=== PATIENT | male | born 1970 | race Caucasian/White ===

== ENCOUNTER 2022-07-13 08:07 | Outpatient (CLI) | payer OTHER, SELFPAY ==
[2022-07-13 10:32] LABS: Albumin* 4.6 g/dL (3.3-5.0); Chloride* 106 mmol/L (96-114)
[2022-07-13 10:33] LABS: Potassium* 4.4 mmol/L (3.6-5.1)
[2022-07-13 10:35] LABS: Alkaline Phosphatase* 96 U/L (40-150); Aspartate Amino Transferase* 28 U/L (12-35); Bilirubin Total* 0.6 mg/dL (0.1-1.5); Blood Urea Nitrogen* 15 mg/dL (7-30); Carbon Dioxide* 27 mmol/L (20-32); Cholesterol* 145 mg/dL (90-199); Creatinine* 0.9 mg/dL (0.5-1.5); Estimated Glomerular Filt Rate 103 ml/min; Glucose* 144 mg/dL (60-115); Total Protein* 7.4 g/dL (6.0-8.3)
[2022-07-13 10:36] LABS: Alanine Aminotransferase* 21 U/L (4-50); Calcium* 9.3 mg/dL (8.4-10.6); HDL Cholesterol* 37 mg/dL (>=40); LDL Cholesterol Calculated 78 mg/dL (<100); Triglycerides* 150 mg/dL (40-149)
[2022-07-13 11:01] LABS: Creatinine Urine 333.5 mg/dL
[2022-07-13 11:04] LABS: PSA Screen* 1.01 ng/mL (0.10-4.00)
[2022-07-13 11:06] LABS: Microalbumin Creatinine Ratio 0 mg/g (0-30); Microalbumin Urine 2 mg/dL
[2022-07-13 11:07] LABS: Sodium* 141 mmol/L (135-149)
== END 2022-07-13 08:08 | disposition home or self-care (01) ==
LOC: NFLDREF 08:07
PROVIDERS: PCP Family Medicine; Visit Provider Family Medicine
DX: E10.9 Type 1 diabetes mellitus without complications (principal); E78.5 Hyperlipidemia, unspecified; I10 Essential (primary) hypertension; Z12.5 Encounter for screening for malignant neoplasm of prostate
CPT/HCPCS: 80053; 80061; 82043; 82570; 84153

== ENCOUNTER 2022-10-12 15:29 | Outpatient (CLI) | payer OTHER, SELFPAY ==
[2022-10-12 17:58] LABS: TSH With Reflex to FT4* < 0.015 uIU/mL (0.270-4.200)
== END 2022-10-12 15:30 | disposition home or self-care (01) ==
LOC: NFLDREF 15:31
PROVIDERS: PCP Family Medicine; Visit Provider Family Medicine
DX: H49.10 Fourth [trochlear] nerve palsy, unspecified eye (principal)
CPT/HCPCS: 83519; 84439; 84443

== ENCOUNTER 2022-10-21 09:57 | Outpatient (CLI) | payer OTHER, SELFPAY ==
--- NOTE | 2022-10-21 10:15 | CRLHL7_ITS ---
For Patients: As a result of the Century Cures Act, medical imaging exams and procedure reports are released immediately into your electronic medical record. You may view this report before your referring provider. If you have questions, please contact your health care provider. Indication: 4TH CRANIAL NERVE PALSY Technique: Noncontrast sagittal T1, axial FLAIR, T2 turbo spine echo, and diffusion weighted images. Supplemental post contrast T1 weighted axial and coronal sequences are provided after administration of 15 mL gadolinium-based IV contrast. Comparison: No prior studies available for comparison at this institution. Findings: The ventricles, sulci and gyri are normal size, shape and contour for age. The midline structures are centrally located with no evidence of shift. There are no suspicious intra or extra-axial fluid collections. No evidence of restricted diffusion to suggest acute ischemia. Incidental 7 mm pineal gland cyst. Few scattered foci of T2/FLAIR signal intensity noted in the supratentorial subcortical white matter. There is enlargement of the right medial rectus muscle belly measuring up to 7 mm with sparing of the tendinous insertions. Enlargement of the right inferior rectus muscle measuring up to 7 mm with sparing of the tendinous insertions. Enlargement of the left superior rectus muscle belly measuring up to 6 mm with sparing of the tendinous insertion. No evidence of intraconal fat inflammation. Expected flow voids in the cavernous carotids and basilar artery. No abnormal contrast enhancement involving the brain parenchyma, meninges, calvarium or skull base. Small incidental retention cysts in the nasopharyngeal mucosa. Impression: 1. Enlargement and fusiform enhancement of the right medial rectus and inferior rectus muscle as well as the left superior rectus muscle with sparing of the tendinous insertions. 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 Correlation with thyroid/TSH hormone levels is recommended. 2. No acute intracranial abnormality. 3. Few punctate scattered foci of T2 prolongation in the supratentorial white matter are nonspecific. Differential considerations include migraine headaches and prior inflammation/demyelination, of doubtful current clinical significance. 4. Incidental 7 mm pineal gland cyst. Dictated by Rosendo Triana MD @ 10/21/2022 2:36:29 PM (Electronically Signed)
== END 2022-10-21 09:58 | disposition home or self-care (01) ==
PROVIDERS: PCP Family Medicine; Visit Provider Family Medicine
DX: H49.10 Fourth [trochlear] nerve palsy, unspecified eye (principal)
CPT/HCPCS: 70553; A9575

== ENCOUNTER 2022-10-25 08:22 | Outpatient (CLI) | payer OTHER, SELFPAY | END 2022-10-25 08:23 | disposition home or self-care (01) | PROVIDERS: PCP Family Medicine; Referring Provider Family Medicine; Visit Provider Family Medicine | DX: E05.90 Thyrotoxicosis, unspecified without thyrotoxic crisis or storm (principal) | CPT/HCPCS: 86376; 86800 ==

== ENCOUNTER 2022-11-08 10:50 | Outpatient (REF) | payer OTHER, SELFPAY ==
[2022-11-11 02:13] LABS: Thyroid Stimulating IgG (TSI) 1.57 IU/L (<=0.54)
== END 2022-11-08 10:51 | disposition home or self-care (01) ==
LOC: LAB 10:50
PROVIDERS: PCP Family Medicine
DX: H49.10 Fourth [trochlear] nerve palsy, unspecified eye (principal); E10.9 Type 1 diabetes mellitus without complications; I10 Essential (primary) hypertension; Z13.29 Encounter for screening for other suspected endocrine disorder; H53.2 Diplopia
CPT/HCPCS: 36415; 84445

== ENCOUNTER 2023-02-16 11:59 | Outpatient (REF) | payer OTHER, SELFPAY ==
[2023-02-16 13:41] LABS: Hemoglobin A1C* 7.06 % (0-5.6)
[2023-02-16 13:49] LABS: Chloride* 104 mmol/L (96-114); Potassium* 4.5 mmol/L (3.6-5.1); Sodium* 138 mmol/L (135-149)
[2023-02-16 13:51] LABS: Creatinine* 0.9 mg/dL (0.5-1.5); Estimated Glomerular Filt Rate 102 ml/min
[2023-02-16 13:52] LABS: Blood Urea Nitrogen* 13 mg/dL (7-30); Calcium* 9.4 mg/dL (8.4-10.6); Carbon Dioxide* 25 mmol/L (20-32); Glucose* 136 mg/dL (60-115)
[2023-02-16 14:37] LABS: Thyroid Stimulating Hormone* < 0.015 uIU/mL (0.270-4.20)
[2023-02-17 16:14] LABS: Free T3 3.9 pg/mL (2.5-4.3)
== END 2023-02-16 12:00 | disposition home or self-care (01) ==
LOC: NPINS 11:59
PROVIDERS: PCP Family Medicine; Visit Provider Internal Medicine Endocrinology, Diabetes & Metabolism
DX: E10.9 Type 1 diabetes mellitus without complications (principal); E05.90 Thyrotoxicosis, unspecified without thyrotoxic crisis or storm
CPT/HCPCS: 80048; 83036; 84439; 84443; 84480; 84481

== ENCOUNTER 2023-04-19 10:42 | Outpatient (REF) | payer OTHER, SELFPAY ==
[2023-04-19 11:11] LABS: Alkaline Phosphatase* 82 U/L (40-150)
[2023-04-19 11:29] LABS: Free T4 Free Thyroxine* 1.01 ng/dL (0.70-1.85)
[2023-04-19 11:43] LABS: Thyroid Stimulating Hormone* 0.744 uIU/mL (0.270-4.20)
[2023-04-20 21:46] LABS: Free T3 3.1 pg/mL (2.5-4.3)
== END 2023-04-19 10:43 | disposition home or self-care (01) ==
LOC: NPINS 10:42
PROVIDERS: PCP Family Medicine; Visit Provider Internal Medicine Endocrinology, Diabetes & Metabolism
DX: E05.90 Thyrotoxicosis, unspecified without thyrotoxic crisis or storm (principal)
CPT/HCPCS: 84075; 84439; 84443; 84481

== ENCOUNTER 2023-07-25 07:35 | Outpatient (CLI) | payer OTHER, SELFPAY | END 2023-07-25 07:36 | disposition home or self-care (01) | LOC: NFLDREF 07-26 10:25 | PROVIDERS: PCP Family Medicine; Referring Provider Family Medicine; Visit Provider Family Medicine | DX: E10.9 Type 1 diabetes mellitus without complications (principal); E78.5 Hyperlipidemia, unspecified; I10 Essential (primary) hypertension; E05.90 Thyrotoxicosis, unspecified without thyrotoxic crisis or storm; E07.9 Disorder of thyroid, unspecified | CPT/HCPCS: 80053; 80061; 82043; 82570 ==

== ENCOUNTER 2023-07-25 10:44 | Outpatient (REF) | payer OTHER, SELFPAY ==
[2023-07-25 11:15] LABS: Alkaline Phosphatase* 63 U/L (40-150)
[2023-07-25 11:33] LABS: Free T4 Free Thyroxine* 1.18 ng/dL (0.70-1.85)
[2023-07-26 22:11] LABS: Free T3 3.2 pg/mL (2.5-4.3)
== END 2023-07-25 10:45 | disposition home or self-care (01) ==
LOC: NPINS 10:44
PROVIDERS: PCP Family Medicine; Visit Provider Internal Medicine Endocrinology, Diabetes & Metabolism
DX: E05.90 Thyrotoxicosis, unspecified without thyrotoxic crisis or storm (principal)
CPT/HCPCS: 84075; 84439; 84443; 84481

== ENCOUNTER 2023-10-03 08:58 | Outpatient (REF) | payer OTHER, SELFPAY ==
--- OUTSIDE RECORDS SUMMARY | 2023-10-03 09:03 | XMS_ITS | Encounter Summary ---
Author Name Unknown Organization [place] Address Count includes the [facility] [place] [address] Care Team Providers Care Quality Assurance Representative Name Role Phone Unavailable Primary Care Provider Unavailabl e Encounter Details Date Type Department Care Team (Latest Contact Info) Description 11/02/2022 Travel Social History Tobacco Use Types Packs/Day Years Used Date Smoking Tobacco: Never Assessed Sex and Gender Information Value Date Recorded Sex Assigned at Not on file Gender Identity Not on file Sexual Orientation Not on file COVID-19 Exposure Response Date Recorded In the last 10 days, have yo u been in contact with someone who was confirmed or suspected to have Coronavirus/COVID-19? No / Unsure 11/02/2022 7:43 PM CDT documented as of this encounter Plan of Treatment Upcoming Encounters Date Type Department Care Team (Late st Contact Info) Description 01/02/2024 2:00 PM CDT Office Visit [facility] [address] [phone] [place] MD [address] [place] [address] documented as of this encounter Visit Diagnoses Not on filedocumented in this encounter
--- OUTSIDE RECORDS SUMMARY | 2023-10-03 09:03 | XMS_ITS | Referral Summary ---
Author Name Unknown Organization [place] Address [facility] [place] [address] Care Team Providers Care Automotive Service Management Teacher Name Role Phone [place] MD Unavailable [phone] Encounters Date Type Department Care Team Description 07/04/2023 Travel 07/04/2023 2:00 PM WARE CLEANER Office Visit [facility] [address] [phone] [place] MD Diplopia (Primary Dx); Thyroid eye disease; Esotropia, right eye; Hypotropia of right eye from Last 3 Months Allergies No known active allergies Medications Medication Sig Dispensed Refills Start Date End Date Status atorvastatin (LIPITOR) 20 MG tablet 20 MG ORALLY EVERY DAY AT BEDTIME 0 08/02/2022 Active lisinopril (ZESTRIL) 20 MG tablet 20 MG ORALLY EVERY DAY 0 08/02/2022 Ac tive HUMALOG KWIKPEN 100 UNIT/ML soln INJECT 8-25 UNITS SUBCUTANEOUSLY 3 TIMES PER DAY WITH MEALS. 0 07/23/2022 Active LEVEMIR FLEXTOUCH 100 UNIT/ML pen 60 UNIT (0.6 ML) SUBCUTANEOUSLY EVERY DAY AT BEDTIME 0 2022 Active aspirin (ASA) 81 MG chewable tablet 0 Active Multiple Vitamin (MULTIVITAMIN PO) daily 0 Active Alvord-3 Fatty Acids (FISH OIL PO) Take by mouth daily 0 Activ e Social History Tobacco Use Types Packs/Day Years Used Date Smoking Tobacco: Former Cigarettes Q uit: 08/15/1994 Smokeless Tobacco: Never Tobacco Cessation:Counseling Given: Not Answered PHQ-2 Answer Date Recorded PHQ-2 Score 0 03/14/2023 Adolescent Education Answer Date Record ed Getting School Help Needed Not on file 05/30 Sex and Gender Information Value Date Recorded Sex Assigned at Not on file Gender Identity Not on file Sexual Orientation Not on file Plan of Treatment Upcoming Encounters Date Type Department Care Team (Late st Contact Info) Description 01/02/2024 2:00 PM CDT Office Visit [facility] [address] [facility] [address] [place] [phone] [place] MD [address] [place] [address] Procedures Procedure Name Priority Date/Time Associated Diagnosis Comments [place] JACKELYNSJEROME PRISM PRESS-ON LENS Routine 07/04/2023 2:51 PM WARE CLEANER Diplopia Thyroid eye disease Esotropia, right eye Hypotropia of right eye SENSORIMOTOR Routine 07/04/2023 2:51 PM WARE CLEANER Esotropia, right eye Hypotropia of right eye from Last 3 Months Results * Sensorimotor (07/04/2023 2:51 PM WARE CLEANER) Narrative [place] MD - 07/04/2023 2:51 PM WARE CLEANER Performed by: SEAMUS Berry Patient cooperation: Reliable . Reliability of the test: Good . Test Findings: Strabismus . Interpretation: Esotropia, Hypertropia, Thyroid eye disease . Plan: Will monitor and consider eye muscle surgery . Interval: Same . [place] MD OPHTHALMOLOGY from Last 3 Months Care Teams Automotive Service Management Teacher Relationship Specialty Start Date End Date [place] MD [address] [place] [address] Assigned Surgical Provider 03/19/23
--- OUTSIDE RECORDS SUMMARY | 2023-10-03 09:03 | XMS_ITS | Encounter Summary ---
Author Name Unknown Organization [place] Address [address] [place] [address] Care Team Providers Care Asphalt Roller Person Name Role Phone [place] MD Unavailable [phone] Encounter Details Date Type Department Care Team (Latest Contact Info) Description 07/04/2023 Travel Social History Tobacco Use Types Packs/Day Years Used Date Smoking Tobacco: Former Cigarettes Q uit: 08/15/1994 Smokeless Tobacco: Never PHQ-2 Answer Date Recorded PHQ-2 Score 0 03/14/2023 Adolescent Education Answer Date Record ed Getting School Help Needed Not on file 05/30 Sex and Gender Information Value Date Recorded Sex Assigned at Not on file Gender Identity Not on file Sexual Orientation Not on file documented as of this encounter Plan of Treatment Upcoming Encounters Date Type Department Care Team (Late st Contact Info) Description 01/02/2024 2:00 PM CDT Office Visit [facility] [address] [phone] [place] MD [address] [place], [place] [phone] documented as of this encounter Visit Diagnoses Not on filedocumented in this encounter Care Teams Asphalt Roller Person Relationship Specialty Start Date End Date [place] Singh MD [address] [place] [phone] Assigned Surgical Provider 03/19/23 documented as of this encounter
--- OUTSIDE RECORDS SUMMARY | 2023-10-03 09:03 | XMS_ITS | Clinical Summary ---
Author Name Unknown Organization [place] Address [address] [place] [address]. [place] [address] Care Team Providers Care Heel Room Supervisor Name Role Phone [place] MD Unavailable [phone] Allergies No known active allergies Medications Medication [...] Multiple Vitamin (MULTIVITAMIN PO) daily 0 Active Hyampom-3 Fatty Acids (FISH OIL PO) Take by mouth daily 0 Activ e Encounters Date Type Department Care Team Description 07/04/2023 2:00 PM AUDIT SENIOR ASSOCIATE Office Visit [facility] [address] [phone] [place] MD Diplopia (Primary Dx); Thyroid eye disease; Esotropia, right eye; Hypotropia of right eye 07/04/2023 Travel from Last 3 Months Family History Medical History Relation Comments Diabetes Maternal Grandmother Glaucoma Maternal Grandmother Macular Degeneration No family hx of Relation Status Comments Maternal Grandmother Social History Tobacco Use Types Packs/Day Years [...] Description 01/02/2024 2:00 PM CDT Office Visit [facility] [address] [facility] [address] [place] [address] [place] MD [address] [place] [address] Health Maintenance Due Date Last Done Comments ADVANCE CARE PLANNING 1969 ANNUAL REVIEW OF HM ORDERS 1969 CT COLONOGRAPHY 1969 FIT 1969 FLEX SIG 1969 GLUCOSE 1969 HEPATITIS B IMMUNIZATION (1 of 3 - 3-dose series) 1969 LIPID 1969 YEARLY PREVENTIVE VISIT 1969 sDNA (Cologuard) 1969 COLONOSCOPY 1979 COLORECTAL CANCER SCREENING 1979 HIV SCREENING 1984 HEPATITIS C SCREENING 1987 COVID-19 Vaccine ( season) 2023 06/11/2021, 11/22/2020, 11/01/2020 INFLUENZA VACCINE (#1) 2023 2, 07/19/2022, 06/11/2021, Additional history exists PHQ-2 (once per calendar year) 2023 03/14/2023, 11/07/2022 DTAP/TDAP/TD IMMUNIZATION (3 - Td or Tdap) 06/05/2030 06/05/2020, 03/09/2011, 09/21/2002 Pneumococcal Vaccine: Pediatrics (0 to 5 Years) and At-Risk Patients (6 to 64 Years) Aged Out 04/02/2015 No longer eligible based on patient's age to complete this topic ZOSTER IMMUNIZATION Completed 11/08/2022, 2 HPV IMMUNIZATION Aged Out No longer e ligible based on patient's age to complete this topic IPV IMMUNIZATION Aged Out No longer e ligible based on patient's age to complete this topic MENINGITIS IMMUNIZATION Aged Out No l onger eligible based on patient's age to complete this topic RSV MONOCLONAL ANTIBODY Aged Out No l onger eligible based on patient's age to complete this topic Procedures Procedure Name Priority Date/Time Associated Diagnosis Comments [place] JACKELYNDaquanJEROME PRISM PRESS-ON LENS Routine 07/04/2023 2:51 PM AUDIT SENIOR ASSOCIATE Diplopia Thyroid eye disease Esotropia, right eye Hypotropia of right eye SENSORIMOTOR Routine 07/04/2023 2:51 PM AUDIT SENIOR ASSOCIATE Esotropia, right eye Hypotropia of right eye from Last 3 Months Results * Sensorimotor (07/04/2023 2:51 PM AUDIT SENIOR ASSOCIATE) Narrative [place] MD - 07/04/2023 2:51 PM AUDIT SENIOR ASSOCIATE Performed by: SEAMUS Berry Patient cooperation: Reliable . Reliability of the test: Good . Test Findings: Strabismus . Interpretation: Esotropia, Hypertropia, Thyroid eye disease . Plan: Will monitor and consider eye muscle surgery . Interval: Same . [place] MD OPHTHALMOLOGY from Last 3 Months Care Teams Heel Room Supervisor Relationship Specialty Start Date End Date [place] MD [address] [place] [address] Assigned Surgical Provider 03/19/23
--- OUTSIDE RECORDS SUMMARY | 2023-10-03 09:03 | XMS_ITS | Encounter Summary ---
Author Name Unknown Organization [place] Address [address] [place] [address]. [place] [address] Care Team Providers Care Wrapper Opener Name Role Phone Unavailable Primary Care Provider Unavailabl e Reason for Referral * Consultation (Routine) - Pending Review Specialty Diagnoses / Procedures Referred By Inder babb Referred To Contact Ophthalmology Diagnoses Thyrotoxicosis, unspecified without thyrotoxic crisis or storm Rafa Hatfield OD [facility] [address] [place] [id number] Referral ID Status Reason Start Date Expiration Date V isits Requested Visits Authorized [id number] Pending Review 10/28/2022 10/28/2023 1 1 Question Answer Referral Type: Optometry/Ophthalmology Reason for Referral: Other My Clinical Question Is: [facility] Scheduling Instructions: Isi Fernandez will call you to coordinate your care as prescribed by your provider. If you don't hear from a industrial sales representative within 2 business days, please call . Additional Information: recently diagnosed with Grave's disease Comments Referred by Rafa Hatfield right eye @ [facility] [phone] Please be aware that coverage of these services is subject to the terms and limitations of your health insurance plan. Call member services at your health plan with any benefit or coverage questions. Isi [facility] will call you to coordinate your care as prescribed by your provider. If you don't hear from a industrial sales representative within 2 business days, please call . Encounter Details Date Type Department Care Team (Late st Contact Info) Description 10/28/2022 Transcribe Orders GENERIC EXTERNAL DATA DEPARTMENT Provider, Generic External Data Thyrotoxicosis, unspecified without thyrotoxic crisis or storm (Primary Dx) Social History Tobacco Use Types Packs/Day Years Used Date Smoking Tobacco: Never Assessed Sex and Gender Information Value Date Recorded Sex Assigned at Not on file Gender Identity Not on file Sexual Orientation Not on file documented as of this encounter Plan of Treatment Upcoming Encounters Date Type Department Care Team ([facility] Contact Info) Description 01/02/2024 2:00 PM CDT Office Visit [facility] [address] [phone] [place] MD [address] [place] [phone] Scheduled Referrals Name Type Priority Associated Diagnoses Orde r Schedule Adult Eye Auction Clerk Referral Referral Routine Thyrotoxicosis, unspecified without thyrotoxic crisis or storm Expected: 10/28/2022 (Approximate), Expires: 10/29/2023 documented as of this encounter Visit Diagnoses Diagnosis Thyrotoxicosis, unspecified without thyrotoxic crisis or storm- Primary documented in this encounter
--- OUTSIDE RECORDS SUMMARY | 2023-10-03 09:03 | XMS_ITS | Encounter Summary ---
Author Name Unknown Organization [place] Address [address] [place] [address]. [place] [address] Care Team Providers Care Sales Officer Name Role Phone System, Provider Not In Primary Care Provider Un available [place] MD Unavailable [phone] Reason for Visit * Reason Onset Date Comments Referral 10/29/2022 Dx-Thyrotoxicosi s, unspecified without thyrotoxic crisis or storm [E05.90] Encounter Details Date Type Department Care Team ([facility] st Contact Info) Description 10/29/2022 [facility] [address] [facility] [address] [place] [phone] None Referral (Dx-Thyrotoxicosis, unspecified without thyrotoxic crisis or storm [E05.90]) Social History Tobacco Use Types Packs/Day Years Used Date Smoking Tobacco: Never Assessed Sex and Gender Information Value Date Recorded Sex Assigned at Not on file Gender Identity Not on file Sexual Orientation Not on file documented as of this encounter Miscellaneous Notes * Telephone Encounter - Silvino [place] - 11/01/2022 7:52 AM CDT Sent new patient packet..silvino * Telephone Encounter - Carisa [place] - 10/29/2022 11:01 AM CDT [facility] Call Center Phone Message May a detailed message be left on voicemail: yes Reason for Call: Appointment Intake Referring Provider Name: Miliner, Rafa C, OD in GENERIC EXTERNAL DATA DEPARTMENT Diagnosis and/or Symptoms: Thyrotoxicosis, unspecified without thyrotoxic crisis or storm [E05.90] Referral says to schedule in [facility] and Patient said needs to be seen earlier than 03/14 also said has double Vision and 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, Please call patient to discuss being seen earlier with his current symptoms, not able to work Thank you, Action Taken: Message routed to: [facility]): eye Travel Screening: Not Applicable documented in this encounter Plan of Treatment Upcoming Encounters Date Type Department Care Team (Late st Contact Info) Description 01/02/2024 2:00 PM CDT Office Visit [facility] [address] [phone] [place] MD [address] [place] [address] documented as of this encounter Visit Diagnoses Not on filedocumented in this encounter Care Teams Sales Officer Relationship Specialty Start Date End Date System, Provider Not In PCP - General Clinic 10/29/22 10/29/22 [place] Singh MD [address] [place] [address] Assigned Surgical Provider 03/19/23 documented as of this encounter
--- OUTSIDE RECORDS SUMMARY | 2023-10-03 09:03 | XMS_ITS | Encounter Summary ---
Author Name Unknown Organization [place] Address [address] [place] [address] Care Team Providers Care Enterprise Security Architect Name Role Phone [place] MD Unavailable [phone] Encounter Details Date Type Department Care Team (Latest Contact Info) Description 06/27/2023 Travel Social History Tobacco Use Types Packs/Day [...] Description 01/02/2024 2:00 PM CDT Office Visit [facility] [address] [phone] [place] MD [address] [place], [place] [phone] documented as of this encounter Visit Diagnoses Not on filedocumented in this encounter Care Teams Enterprise Security Architect Relationship Specialty Start Date End Date [place] Singh MD [address] [place] [phone] Assigned Surgical Provider 03/19/23 documented as of this encounter
--- OUTSIDE RECORDS SUMMARY | 2023-10-03 09:03 | XMS_ITS | Encounter Summary ---
Author Name Unknown Organization [place] Address [address] [facility] [place] [address] Care Team Providers Care Pin Sticker Name Role Phone Raymond Singh MD Unavailable [phone] Reason for Visit * Reason Comments Thyroid Disease Has fresnel prisms t hat resolves the diplopia in primary position.No pain, but the right eye feels discomfort Encounter Details Date Type Department Care Team (Late st Contact Info) Description 07/04/2023 2:00 PM MAIL MANAGER Office Visit [facility] [address] [phone] Raymond Singh MD [address] [place], [place] [id number] Diplopia (Primary Dx); Thyroid eye disease; Esotropia, right eye; Hypotropia of right eye Social History Tobacco Use Types Packs/Day Years [...] on file documented as of this encounter Progress Notes * Raymond Singh MD - 07/04/2023 2:00 PM CST Images from the original note were not included. THYROID EYE DISEASE CLINIC - VISIT NOTE Referring physician: Dr. Jorge Ramey HPI: After the last visit, the patient notes that his binocular diplopia improved substantially with Fresnel prism correction. He states that he has intermittent epiphora right eye, improved with hot water soaks in the shower. He denies visual acuity changes or eye pain at rest or with movement. He is not currently using AT. HPI: He was diagnosed with Graves Disease in November 2022. He has had bilateral eye redness and watering for the past year. They started bulging in the spring. Double vision started Fall 2021. The double vision is binocular and vertical with an oblique component. It has been the same for about 10 months and not changing. He had an MRI in October 2022 which is when he was diagnosed with Grave's Disease. He initially had palpitations and some shakiness but it has improved with the medication. He has bilateral eye irritation and redness for which he is using artificial tears. He started Methazolamide in and the dose was recently increased. Follows with Radha Sutherland at [facility]. Thyroid history: Diagnosed when? Diagnosed with graves disease 10/2022 [place]: no Thyroidectomy: no Methazolamide 5 mg daily and 10 mg on Mondays and Selenium TSI Elevated to 1.57 [<0.54] on 02/17/23 [facility] ONLY MRI Brain [facility] 10/21/22: Eye symptoms (since when): since 02/2023 Proptosis (better/worse/same since last visit): better Diplopia(better/worse/same since last visit): same, constant (improved with Fresnel) Eyelid retraction(better/worse/same since last visit): better Tearing(better/worse/same since last visit): same, constant Redness (better/worse/same since last visit): better Pain (better/worse/same since last visit): better Pain to move the eyes (better/worse/same since last visit): same, intermittent Blurred vision: better, only with epiphora Ocular history: Orbital decompression: none Strabismus surgery: none Eyelid surgery: none Medical history: Type 1 Diabetes - last A1c 7.6 a few weeks ago Patient has a current medication list which includes the following prescription(s): aspirin, atorvastatin, humalog kwikpen, levemir flextouch, lisinopril, multiple vitamin, and omega-3 fatty acids. Patient reports that he quit smoking about 28 years ago. His smoking use included cigarettes. He has never used smokeless tobacco. Smoked for about 8 years in teens/early 20's Exam: Licha: / Better/worse same: same Strabismus (better/worse/same): Right ET and right hypo - measuring slightly worse in all gazes today but continues to fuse with current fresnel Eyelid retraction (better/worse/same): bilateral upper lid retraction BUCK Score: 1. Spontaneous orbital pain. 0 2. Gaze evoked orbital pain. 1 3. Eyelid swelling due to active thyroid eye disease 1 4. Eyelid erythema. 1 5. Conjunctival redness due to active thyroid eye disease . 1 6. Chemosis. 1 7. Inflammation of caruncle OR plica. 0 Patients assessed after follow-up can be scored out of 10 by including items 8-10. 8. Increase of > 2mm in proptosis. 0 9. Decrease in uniocular excursion in any direction of > 8??. 0 10. Decrease of acuity equivalent to 1 Snellen line. 0 BUCK SCORE = 5/10 Galindo Diplopia Score = 3 0 = no diplopia 1 = intermittent (when tired, upon waking, end of day etc) 2 = inconstant (extreme gazes) 3 = constant Lon Garcia is a 52 year old male with the following diagnoses: 1. Diplopia 2. Thyroid eye disease 3. Esotropia, right eye 4. Hypotropia of right eye Diagnosed with Grave's Disease in November 2022. Onset of eye symptoms including bulging and double vision several months before diagnosis. TSI elevated to 1.57 on 02/17/23. Has right esotropia and hypotropia. Fresnel prisms fit on glasses last visit, which largely resolved the diplopia. This patient has moderate to severe active thyroid eye disease. Subjectively improved since last visit. BUCK score improved to 5/10 (from 01/19). Sensorimotor exam with RET and R Hypo measuring slightly worse than prior but doing well in currentprism correction. Eyelid retraction improved. Ocular surface inflammation largely stable. Former smoker (quit 30 years ago). On methimazole managed by oil and gas superintendent. Discussed options fortreatment of active IMANI including IV corticosteroids vs Tepezza vs orbital radiation vs monitoring at last visit; Tepezza was deferred given history of diabetes and risk of hearing loss. Discussed strabismus surgery is not recommended during active phase but can be considered one his thyroid eye disease is chronic/inactive. Continue current fresnel prism correction Start artificial tears QID Consider AT nacho Start WC PRN if warm soaks are helpful Follow up in 4-6 months. Attending Physician Attestation: Complete documentation of historical and exam elements from today's encounter can be found in the full encounter summary report (not reduplicated in this progress note). I personally obtained the chief complaint(s) and history of present illness. I confirmed and edited as necessary the review of systems, past medical/surgical history, family history, social history, and examination findings as documented by others; and I examined the patient myself. I personallyreviewed the relevant tests, images, and reports as documented above. I formulated and edited as necessary the assessment and plan and discussed the findings and management plan with the patient and f leviy. I personally reviewed the ophthalmic test(s) associated with this encounter, agree with the interpretation(s) as documented by the resident/fellow, and have edited the corresponding report(s) as necessary. - Raymond Franco MD Oculoplastic Surgery Fellow, [facility] Pre-charting: Lennie Russell MD Fellow, Neuro-ophthalmology MANAGER documented in this encounter Nursing Notes * Jigna Lord CO - 07/04/2023 2:00 PM CST Chief Complaint(s) and History of Present Illness(es) Thyroid Disease Laterality: both eyes Course: stable Associated symptoms: double vision, redness and tearing. Negative for eye pain Comments: Has fresnel prisms that resolves the diplopia in primary position. No pain, but the right eye feels discomfort MANAGER documented in this encounter Plan of Treatment Upcoming Encounters Date Type Department Care Team (Late st Contact Info) Description 01/02/2024 2:00 PM CDT Office Visit [facility] [address] [facility] [address] [place] [phone] Raymond Singh MD [address] [place] [phone] documented as of this encounter Procedures Procedure Name Priority Date/Time Associated Diagnosis Comments CO FRESNELL PRISM PRESS-ON LENS Routine 07/04/2023 2:51 PM MAIL MANAGER Diplopia Thyroid eye disease Esotropia, right eye Hypotropia of right eye SENSORIMOTOR Routine 07/04/2023 2:51 PM MAIL MANAGER Esotropia, right eye Hypotropia of right eye documented in this encounter Results * Sensorimotor (07/04/2023 2:51 PM MAIL MANAGER) Narrative Raymond Singh MD - 07/04/2023 2:51 PM MAIL MANAGER Performed by: SEAMUS Berry Patient cooperation: Reliable . Reliability of the test: Good . Test Findings: Strabismus . Interpretation: Esotropia, Hypertropia, Thyroid eye disease . Plan: Will monitor and consider eye muscle surgery . Interval: Same . 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
--- OUTSIDE RECORDS SUMMARY | 2023-10-03 09:03 | XMS_ITS | Encounter Summary ---
Author Name Unknown Organization [place] Address [address] [place] [address] Care Team Providers Care Family Law Specialist Name Role Phone Unavailable Primary Care Provider Unavailabl e Reason for Visit * Reason Comments Thyroid Disease RE feels pressureNee ds to turn head to the right to see singleTaking selenium and methimazole.No smokingTaking Encounter Details Date Type Department Care Team (Late st Contact Info) Description 03/14/2023 1:00 PM CDT Office Visit [facility] [address] [phone] Raymond Singh MD [address] [place] [phone] Thyroid eye disease (Primary Dx); Diplopia; Esotropia, right eye; Hypotropia of right eye Social History Tobacco Use Types Packs/Day Years Used Date Smoking Tobacco: Former Cigarettes Q uit: 08/15/1994 Smokeless Tobacco: Never PHQ-2 Answer Date Recorded PHQ-2 Score 0 03/14/2023 Sex and Gender Information Value Date Recorded Sex Assigned at Not on file Gender Identity Not on file Sexual Orientation Not on file COVID-19 Exposure Response Date Recorded In the last 10 days, have yo u been in contact with someone who was confirmed or suspected to have Coronavirus/COVID-19? No / Unsure 03/14/2023 12:02 PM CDT documented as of this encounter Progress Notes * Raymond Singh MD - 03/14/2023 1:00 PM CDT Images from the original note were not included. THYROID EYE DISEASE CLINIC - NEW VISIT NOTE Referring physician: Dr. Patel HPI: He was diagnosed with Graves Disease [...] with Radha Sutherland at [facility]. Thyroid history: Diagnosed when? Diagnosed with graves disease 10/2022 [place]: no Thyroidectomy: no Methazolamide 5 mg daily and 10 mg on Mondays and (recently increased) Selenium TSI Elevated to 1.57 [<0.54] on 02/17/23 [facility] ONLY MRI Brain [facility] 10/21/22: Eye symptoms (since when): initial Proptosis (better/worse/same since last visit): yes Diplopia(better/worse/same since last visit): yes, constant Eyelid retraction(better/worse/same since last visit): yes, bilateral Tearing(better/worse/same since last visit): yes, constant Redness (better/worse/same since last visit): yes Pain (better/worse/same since last visit): yes, occasionally Pain to move the eyes (better/worse/same since last visit): yes Blurred vision: yes, sometimes left>right Ocular history: Orbital decompression: none Strabismus surgery: [...] 8 years in teens/early 20's Exam: Licha: base 105 Better/worse same: initial Strabismus (better/worse/same): Right ET and right hypo - initial Eyelid retraction (better/worse/same): bilateral upper lid retraction BUCK Score: 1. Spontaneous orbital pain. 1 2. Gaze evoked orbital pain. 1 3. Eyelid swelling due to active thyroid eye disease 1 4. Eyelid erythema. 1 5. Conjunctival redness due to active thyroid eye disease . 1 6. Chemosis. 1 7. Inflammation of caruncle OR plica. 0 Patients assessed after follow-up can be scored out of 10 by including items 8-10. 8. Increase of > 2mm in proptosis. N/A 9. Decrease in uniocular excursion in any direction of > 8??. N/A 10. Decrease of acuity equivalent to 1 Snellen line. N/A BUCK SCORE = 6/7 Galindo Diplopia Score = 3 0 = no diplopia 1 = intermittent (when tired, upon waking, end of day etc) 2 = inconstant (extreme gazes) 3 = constant Lon Garcia is a 52 year old male with the following diagnoses: 1. Thyroid eye disease 2. Diplopia 3. Esotropia, right eye 4. Hypotropia of right eye Diagnosed with Grave's Disease in November 2022. Onset of eye symptoms including bulging and double vision several months before diagnosis. Has right esotropia and hypotropia. Fresnel prisms fit on glasses today. BUCK score 6/7. TSI elevated to 1.57 on 02/17/23. Appears consistent with active phase of IMANI. Former smoker (quit 30 years ago). On methimazole managed by ankle patch molder. Discussed options for treatment of active IMANI including IV corticosteroids vs Tepezza vs orbital radiation vs monitoring. He is hesitant to consider Tepezza due to his history of diabetes and risk of hearing loss. He ismostly bothered by the double vision. Discussed strabismus surgery is not recommended during activephase but can be considered one his thyroid eye disease is chronic/inactive. This patient has moderate to severe active thyroid eye disease. I discussed the use of teprotumumab for the treatment of thyroid eye disease. We discussed the common side effects including muscle cramping, nausea, diarrhea and headache. Less common side effects including change in blood sugar, alopecia and hearing changes were also discussed with the patient. We discussed alternative options including off-label use of medications which are not FDA approved for thyroid eye disease including pulse IV corticosteroids and alternative immuno-suppressive agents (e.g. rituximab and tocilizumab). Ultimately we opted against rituximab and tocilizumab because theirefficacy is not well proven for thyroid eye disease. These drugs have never been studied in a randomized control trial for this indication (literature is limited to retrospective case reports and case series) and they both carry a risk of severe side-effects including potential progressive multifocal leukoencephalopathy. We discussed corticosteroids as this can have some effect on the inflammatory component of thyroid eye disease but is not FDA approved for this use, does carry some risk for serious side-effects, and has not been shown to conclusively change the long-term outcome of the disease in quality, prospective randomized trials. After a detailed conversation, we agreed to observation. Follow up 4-6 months sooner as needed for worsening symptoms. Attending Physician Attestation: Complete documentation of historical [...] the corresponding report(s) as necessary. - Raymond Alarcon MD PGY3 Ophthalmology Pre-charting: Lennie Russell MD Fellow, Neuro-ophthalmology documented in this encounter Nursing Notes * Jigna Lord I, CO - 03/14/2023 1:00 PM CDT Chief Complaint(s) and History of Present Illness(es) Thyroid Disease Laterality: both eyes Course: gradually worsening Associated symptoms: double vision, dryness and eye pain Comments: RE feels pressure Needs to turn head to the right to see single Taking selenium and methimazole. No smoking Taking Comments Diagnosed with Graves dz in October 2022. Hx of DM 1 02/16/2023: TSI < 0.015 uIU/mL (Below low normal) documented in this encounter Plan of Treatment Upcoming Encounters Date Type Department Care Team (Late st Contact Info) Description 01/02/2024 2:00 PM CDT Office Visit [facility] [address] [phone] Raymond Singh MD [address] [place] [phone] documented as of this encounter Procedures Procedure Name Priority Date/Time Associated Diagnosis Comments SENSORIMOTOR Routine 03/14/2023 1:56 PM CDT Diplopia Esotropia, right eye Hypotropia of right eye EXTERNAL PHOTOS THYROID SERIES Routine 03/14/2023 1:56 PM CDT Thyroid eye disease ME FRESNELL PRISM PRESS-ON LENS Routine 03/14/2023 1:00 PM CDT Diplopia documented in this encounter Results * Sensorimotor (03/14/2023 1:56 PM CDT) Narrative Raymond Singh MD - 03/14/2023 1:56 PM CDT Performed by: SEAMUS Berry . Patient cooperation: Reliable . Reliability of the test: Good . Test Findings: Strabismus . Interpretation: Esotropia, Hypertropia, Thyroid eye disease . Plan: Will monitor and consider eye muscle surgery . Interval: Worse . Raymond Singh MD OPHTHALMOLOGY * External Photos Thyroid Series (03/14/2023 1:56 PM CDT) Narrative Raymond Singh MD - 03/14/2023 1:56 PM CDT Performed by: cjo . Patient cooperation: Reliable . Reliability of the test: Good . Notes Consistent with exam. Results documented under Exam and A&P. ?? Raymond Singh MD OPHTHALMOLOGY documented in this encounter Visit Diagnoses Diagnosis Thyroid eye disease- Primary Toxic diffuse goiter without mention of thyrotoxic crisis or storm Diplopia Esotropia, right eye Esotropia, unspecified Hypotropia of right eye documented in this encounter
--- OUTSIDE RECORDS SUMMARY | 2023-10-03 09:03 | XMS_ITS | Encounter Summary ---
Author Name Unknown Organization [place] Address [facility] [place] [address] Care Team Providers Care Personal Computer Network Analyst Name Role Phone Unavailable Primary Care Provider Unavailabl e Encounter Details Date Type Department Care Team (Latest Contact Info) Description 11/03/2022 Travel Social History Tobacco Use Types Packs/Day Years Used Date Smoking Tobacco: Former Cigarettes Q uit: 08/15/1994 Smokeless Tobacco: Never Sex and Gender Information Value Date Recorded Sex Assigned at Not on file Gender Identity Not on file Sexual Orientation Not on file COVID-19 Exposure Response Date Recorded In the last 10 days, have yo u been in contact with someone who was confirmed or suspected to have Coronavirus/COVID-19? No / Unsure 11/03/2022 9:27 AM CDT documented as of this encounter Plan of Treatment Upcoming Encounters Date Type Department Care Team (Late st Contact Info) Description 01/02/2024 2:00 PM CDT Office Visit [facility] [address] [phone] Raymond Singh MD [address] [place] [phone] documented as of this encounter Visit Diagnoses Not on filedocumented in this encounter
--- OUTSIDE RECORDS SUMMARY | 2023-10-03 09:03 | XMS_ITS | Encounter Summary ---
Author Name Unknown Organization [place] Address [address] [place] [address] Care Team Providers Care Size Marker Name Role Phone Unavailable Primary Care Provider Unavailabl e Reason for Visit * Reason Comments Diplopia Evaluation Encounter Details Date Type Department Care Team (Late st Contact Info) Description 11/03/2022 10:00 AM CDT Office Visit [facility] Eye [address] [place] [address] Doi Cancino MD [address] [place] [phone] Cata Andre MD [address] [place] [address] Thyroid eye disease (Primary Dx); Diplopia; Glaucoma suspect of both eyes; Refractive error Social History Tobacco Use Types Packs/Day Years Used Date Smoking Tobacco: Former Cigarettes Q uit: 08/15/1994 Smokeless Tobacco: Never Tobacco Cessation:Counseling Given: Not Answered Sex and Gender Information Value Date Recorded Sex Assigned at Not on file Gender Identity Not on file Sexual Orientation Not on file COVID-19 Exposure Response Date Recorded In the last 10 days, have yo u been in contact with someone who was confirmed or suspected to have Coronavirus/COVID-19? No / Unsure 11/03/2022 9:27 AM CDT documented as of this encounter Patient Instructions * Patient Instructions* Cata Andre MD - 11/03/2022 10:00 AM CDT Start selenium 100 mcg twice a day by mouth. Artificial tears as needed. documented in this encounter Progress Notes * Cata Andre MD - 11/03/2022 10:00 AM CDT Ophthalmology Clinic Note Chief Complaint(s) and History of Present Illness(es) HPI Diplopia Evaluation In both eyes. Disease is new. Characterized as oblique. Duration of months. Occurring constantly. Since onset it is gradually worsening. Associated symptoms include blurred vision. Context includes: myasthenia gravis. Treatments tried include closing one eye. Pain was noted as 0/10. Comments Pt here for evaluation of diplopia in the setting of new dx graves disease. He states he has had diplopia since the fall and it has been gradually worsening. He was dx with graves disease last week and has not started any medication or had any treatment. He does not have diplopia with his head straight looking straight on, but induces it with head tilt right or left and looking up. He has been controlling it with head movements. He has an appt with illuminating engineer on November 19. He has a bit of a pressure sensation in his right eye like someone is pulling back on my eyelid. The right eye is irritated but not painful. Pt is type 1 diabetic. Last A1C 6.8 or 6.9 in July 2022 per pt. BSL was 138 when he checked last night, he states he doesn't check in the morning. BERHANE Grant 10:28 AM 11/03/2022 Last edited by Jana Resendiz on 11/03/2022 10:31 AM. History of Present Illness: Lon Garcia is a 52 year old male here for diplopia evaluation. He states he has had slowlyprogressive binocular diplopia since the fall as well as some puffiness and bulging of his R eyelidand eye, and tearing R>L. Occasional redness. He has a bit of a pressure sensation in his right eye. No blurry vision. Pt is type 1 diabetic. Last A1C 6.8 or 6.9 in July 2022 per pt. No f/f. No transient visual obscurations or episodic vision loss. No history of cancer or radiation or eye surgery. He was dx with graves disease last week and has not started any medication or had any treatment. He has an appt with illuminating engineer on November 19. Review of systems for the eyes was negative other than the pertinent positives/negatives listed in the HPI. Thyroid history: Diagnosed when? Last week TERRELL: no Thyroidectomy: no TSI (date): n/a Elevated T4 and low TSH Eye symptoms (since when): FIRST EVALUATION Proptosis: yes R>L ~ 2mm Diplopia: yes since fall getting worse Eyelid retraction: mild Tearing: yes R>L Redness: occasional Pain: pressure right eye Pain to move the eyes: none Blurred vision: none Ocular history: None Family history: grandmother with glaucoma Exam: Licha (base): 20.5/19 (100) Strabismus: yes see strab exam -- restrictive Eyelid retraction: trace 1. Spontaneous orbital pain. yes 2. Gaze evoked orbital pain. no 3. Eyelid swelling due to active thyroid eye disease yes 4. Eyelid erythema. no 5. Conjunctival redness due to active thyroid eye disease . no 6. Chemosis. no 7. Inflammation of caruncle OR plica. no BUCK SCORE = 2 (initial evaluation) MRI brain and orbit w and without contrast 10/21/22: Enlargement of inferior rectus and medial rectus of the right orbit. Enlargement of left superior rectus Does not involve tendinous insertions Assessment Lon Garcia is a 52 year old male with the following diagnoses: 1. Thyroid eye disease 2. Diplopia 3. Glaucoma suspect of both eyes 4. Refractive error Patient exam, history, and imaging consistent with thyroid eye disease. BUCK score today of 2 does not suggest high activity. Ongoing symptoms for at least >4 months. No prior treatments, surgery, or radiation. No evidence of optic neuropathy at this time Has appt with endocrinology soon to establish care and start hyperthryoid treatment. Non smoker Plan: - discussed with patient findings and likely etiology and pathogenesis - obtain TSI today - will start selenium 100 mcg twice a day PO (patient denies any history of prostate cancer) - may continue to patch right side of eyeglasses with paper/translucent tape for diplopic comfort until stabilization - preservative free artificial tears as needed - instructed patient to continue to avoid smoking - instructed to follow up with endocrinology as planned - follow up in the thyroid eye clinic in 3 months for recheck of measurements and to establish care Glaucoma suspect based on borderline IOP both eyes and mild cup to disc asymmetry R>L +family history grandmother Consider for baseline glaucoma eval in the future; patient will call to make appointment Counseled return precautions Patient disposition: Return in about 3 months (around 02/03/2023) for Follow Up [facility] clinic, or sooner changes. Staffed with Dr. Patel. Cata Andre MD PGY-3 Resident Physician Department of Ophthalmology Associated attestation - Christina Patel MD - 11/11/2022 8:39 PM CDT Attending Physician Attestation: Complete documentation of historical [...] and management plan with the patient and family. . - Christina aPtel MD documented in this encounter Plan of Treatment Upcoming Encounters Date Type Department Care Team (Late st Contact Info) Description 01/02/2024 2:00 PM CDT Office Visit [facility] [address] [phone] Raymond Singh MD [address] [place] [phone] documented as of this encounter Procedures Procedure Name Priority Date/Time Associated Diagnosis Comments SENSORIMOTOR Routine 11/11/2022 8:16 PM CDT documented in this encounter Results * Sensorimotor (11/11/2022 8:16 PM CDT) Narrative Christina Patel MD - 11/11/2022 8:16 PM CDT Performed by: ana maria . Patient cooperation: Reliable . Reliability of the test: Good . Test Findings: Strabismus . Interpretation: Esotropia, Hypertropia, Thyroid eye disease . Plan: Will monitor and consider eye muscle surgery . Interval: Initial . Notes Recent diagnosis of Graves. ??Has endocrinology appt in November. ??No treatments yet. ??Patient with moderate angle ET and LHT. ??Would recommend hold off on Fresnel prism treatment until further workup management. ??He does have an upcoming appt with Dr. Poole in March 2023. ??Will re-evaluate alignment and Fresnel prisms at that appt,. Sensorimotor exam reviewed [facility] documented in this encounter Visit Diagnoses Diagnosis Thyroid eye disease- Primary Toxic diffuse goiter without mention of thyrotoxic crisis or storm Diplopia Glaucoma suspect of both eyes Preglaucoma, unspecified Refractive error Unspecified disorder of refraction and accommodation documented in this encounter
--- OUTSIDE RECORDS SUMMARY | 2023-10-03 09:03 | XMS_ITS | Encounter Summary ---
Author Name Unknown Organization [place] Address [facility] [place] [address] Care Team Providers Care Hot Oiler Name Role Phone Unavailable Primary Care Provider Unavailabl e Encounter Details Date Type Department Care Team (Latest Contact Info) Description 03/14/2023 Travel Social History Tobacco Use Types Packs/Day [...] Description 01/02/2024 2:00 PM CDT Office Visit [facility] Clinic [address] [phone] Raymond Singh MD [address] [place] [phone] documented as of this encounter Visit Diagnoses Not on filedocumented in this encounter
--- OUTSIDE RECORDS SUMMARY | 2023-10-03 09:03 | XMS_ITS | Encounter Summary ---
Author Name Unknown Organization [place] Address [address] [place] [address]. [place] [address] Care Team Providers Care Learning Administrator Name Role Phone System, Provider Not In Primary Care Provider Un available Encounter Details Date Type Department Care Team (Late st Contact Info) Description 10/29/[address] [place] [phone] Rodney Robbins MD [address] [place] [address] Social History Tobacco Use Types Packs/Day Years Used Date Smoking Tobacco: Never Assessed Sex and Gender Information Value Date Recorded Sex Assigned at Not on file Gender Identity Not on file Sexual Orientation Not on file documented as of this encounter Miscellaneous Notes * Telephone Encounter - Katie Galindo - 10/29/2022 2:02 PM CDT Called and spoke to Doroteo Sadler was agitated when I spoke to him. I made him an acute appointment for next week with Dr. Andre for double vision I also made a Dr. Robbins appointment for 03/15 @ 2 pm added appointment to the wait list Provided parking information Mailed a new pt packet Katie Galindo Communication Wringer And Setter on 10/29/2022 at 2:14 PM documented in this encounter Plan of Treatment Upcoming Encounters Date Type Department Care Team (Late st Contact Info) Description 01/02/2024 2:00 PM CDT Office Visit [facility] Clinic [address] [phone] Raymond Singh MD [address] [place] [address] documented as of this encounter Visit Diagnoses Not on filedocumented in this encounter Care Teams Learning Administrator Relationship Specialty Start Date End Date System, Provider Not In PCP - General Clinic 10/29/22 3 documented as of this encounter
--- OUTSIDE RECORDS SUMMARY | 2023-10-03 09:03 | XMS_ITS | Encounter Summary ---
Author Name Unknown Organization [place] Address [facility] [place] [address] Care Team Providers Care Security Assistant Name Role Phone Unavailable Primary Care Provider Unavailabl e Encounter Details Date Type Department Care Team (Latest Contact Info) Description 03/07/2023 Travel Social History Tobacco Use Types Packs/Day [...] suspected to have Coronavirus/COVID-19? No / Unsure 03/07/2023 6:40 PM CDT documented as of this encounter Plan of Treatment Upcoming Encounters Date Type Department Care Team (Late st Contact Info) Description 01/02/2024 2:00 PM CDT Office Visit [facility] Clinic [address] [phone] Raymond Singh MD [address] [place] [phone] documented as of this encounter Visit Diagnoses Not on filedocumented in this encounter
[2023-10-03 09:34] LABS: Alkaline Phosphatase* 81 U/L (40-150)
[2023-10-04 15:20] LABS: Free T3 3.5 pg/mL (2.5-4.3)
== END 2023-10-03 08:59 | disposition home or self-care (01) ==
LOC: NPINS 08:58
PROVIDERS: PCP Family Medicine; Visit Provider Internal Medicine Endocrinology, Diabetes & Metabolism
DX: E05.00 Thyrotoxicosis with diffuse goiter without thyrotoxic crisis or storm (principal)
CPT/HCPCS: 84075; 84439; 84443; 84481

== ENCOUNTER 2023-12-06 12:12 | Outpatient (REF) | payer OTHER, SELFPAY ==
--- OUTSIDE RECORDS SUMMARY | 2023-12-06 12:16 | XMS_ITS | Clinical Summary ---
Author Name Unknown Organization [place] Address [address] [place] [address]. [place] [address] Care Team Providers Care Weight Loss Sales Consultant Name Role Phone Raymond Singh MD Unavailable [phone] Allergies No known active allergies Medications Medication Sig Dispensed Refills Start Date End Date Status atorvastatin (LIPITOR) 20 MG tablet 20 MG ORALLY EVERY DAY AT BEDTIME 08/02/2022 Active lisinopril (ZESTRIL) 20 MG tablet 20 MG ORALLY EVERY DAY 08/02/2022 Ac tive HUMALOG KWIKPEN 100 UNIT/ML soln INJECT 8-25 UNITS SUBCUTANEOUSLY 3 TIMES PER DAY WITH MEALS. 07/23/2022 Active LEVEMIR FLEXTOUCH 100 UNIT/ML pen 60 UNIT (0.6 ML) SUBCUTANEOUSLY EVERY DAY AT BEDTIME 2022 Active aspirin (ASA) 81 MG chewable tablet Active Multiple Vitamin (MULTIVITAMIN PO) daily Active Garland-3 Fatty Acids (FISH OIL PO) Take by mouth daily Activ e Family History Medical History Relation Comments Diabetes [...] Description 01/02/2024 2:00 PM CDT Office Visit [facility] [address] [phone] Raymond Singh MD [address] [place] [address] Health Maintenance Due Date Last Done Comments ADVANCE CARE PLANNING 1969 ANNUAL REVIEW OF HM ORDERS 1969 CT COLONOGRAPHY 1969 FIT 1969 FLEX SIG 1969 GLUCOSE 1969 LIPID 1969 YEARLY PREVENTIVE VISIT 1969 sDNA (Cologuard) 1969 COLONOSCOPY 1979 COLORECTAL CANCER SCREENING 1979 HIV SCREENING 1984 HEPATITIS C SCREENING 1987 HEPATITIS B IMMUNIZATION (1 of 3 - 19+ 3-dose series) 1988 LUNG CANCER SCREENING 2019 COVID-19 Vaccine ( season) 2023 06/11/2021, 11/22/2020, [...] on patient's age to complete this topic Care Teams Weight Loss Sales Consultant Relationship Specialty Start Date End Date Raymond Singh MD [address] [place] [phone] Assigned Surgical Provider 03/19/23
--- OUTSIDE RECORDS SUMMARY | 2023-12-06 12:16 | XMS_ITS | Referral Summary ---
Author Name Unknown Organization [place] Address [facility] [place] [address] Care Team Providers Care [employer] Volleyball Coach Name Role Phone Raymond Singh MD Unavailable [phone] Allergies No known active allergies Medications [...] Active Multiple Vitamin (MULTIVITAMIN PO) daily Active [place]-3 Fatty Acids (FISH OIL PO) Take by mouth daily Activ e Social History Tobacco Use Types [...] Upcoming Encounters Date Type Department Care Team (Emani st Contact Info) Description 01/02/2024 2:00 PM CDT Office Visit [facility] [address] [phone] Raymond Singh MD [address] [place] [address] Care Teams Middle [employer] Volleyball Coach Relationship Specialty Start Date End Date Raymond Singh MD [address] [place] [phone] Assigned Surgical Provider 03/19/23
--- OUTSIDE RECORDS SUMMARY | 2023-12-06 12:16 | XMS_ITS | Encounter Summary ---
Author Name Unknown Organization [facility] [place] Address [address] [place] [address]. [place] [address] Care Team Providers Care Bead Wire Taper Name Role Phone System, Provider Not In Primary Care Provider Un available Raymond Singh MD Unavailable [phone] Reason for Visit * Reason Onset Date Comments Referral 10/29/2022 Dx-Thyrotoxicosi s, unspecified without thyrotoxic crisis or storm [E05.90] Encounter Details Date Type Department Care Team ([facility] st Contact Info) Description 10/29/2022 [facility] Eye [address] [address] [place] [phone] None Referral (Dx-Thyrotoxicosis, unspecified without thyrotoxic crisis [...] Carisa Foster - 10/29/2022 11:01 AM CDT [facility] Call Center Phone Message May a [...] Message routed to: [facility] ([facility]): eye Travel Screening: Not Applicable documented in this encounter Plan of Treatment Upcoming Encounters Date Type Department Care Team (Late st Contact Info) Description 01/02/2024 2:00 PM CDT Office Visit [facility] Clinic [address] [phone] Raymond Singh MD [address] [place] [address] documented as of this encounter Visit Diagnoses Not on filedocumented in this encounter Care Teams Bead Wire Taper Relationship Specialty Start Date End Date System, Provider Not In PCP - General Clinic 10/29/22 10/29/22 Raymond Singh MD [address] [place] [address] Assigned Surgical Provider 03/19/23 documented as of this encounter
[2023-12-06 13:24] LABS: Alkaline Phosphatase* 75 U/L (40-150)
[2023-12-06 13:41] LABS: Free T4 Free Thyroxine* 1.24 ng/dL (0.70-1.85)
[2023-12-07 21:12] LABS: Total T3 138 ng/dL (80-200)
== END 2023-12-06 12:13 | disposition home or self-care (01) ==
LOC: NPINS 12:12
PROVIDERS: PCP Family Medicine; Visit Provider Internal Medicine Endocrinology, Diabetes & Metabolism
DX: E05.00 Thyrotoxicosis with diffuse goiter without thyrotoxic crisis or storm (principal)
CPT/HCPCS: 84075; 84439; 84443; 84480

== ENCOUNTER 2024-02-08 08:56 | Outpatient (REF) | payer OTHER, SELFPAY ==
--- OUTSIDE RECORDS SUMMARY | 2024-02-08 09:01 | XMS_ITS | Encounter Summary ---
Author Organization [place] Address [facility] [address] Care Team Providers Care Color Dipper Name Role Phone Raymond Singh MD Unavailable [phone] Isael Lockhart MD Primary Care Provider Encounter Details Date Type Department Care Team (Latest Contact Info) Description 12/30/2023 Travel Social History Tobacco Use Types Packs/Day [...] Care Team (Late st Contact Info) Description 07/02/2024 2:00 PM PAINTER HAND Office Visit [facility] Clinic [address] [facility] [facility] [address] [facility] [address] [phone] Raymond Singh MD [address] [place] [address] documented as of this encounter Visit Diagnoses Not on filedocumented in this encounter Care Teams Color Dipper Relationship Specialty Start Date End Date Isael Lockhart MD [facility] [address] [place] [address] PCP - General Family Medicine 12/28/23 Raymond Singh MD [address] [place] [address] Assigned Surgical Provider 03/19/23 documented as of this encounter
--- OUTSIDE RECORDS SUMMARY | 2024-02-08 09:01 | XMS_ITS | Clinical Summary ---
Author Organization [place] Address [address] [place] [address]. [place] [address] Care Team Providers Care Electrician Helper Automotive Name Role Phone Raymond Singh MD Unavailable [phone] Isael Lockhart MD Primary Care Provider [phone] Allergies No known active allergies Medications Medication [...] Active Multiple Vitamin (MULTIVITAMIN PO) daily Active Isabella-3 Fatty Acids (FISH OIL PO) Take by mouth daily Activ e Active Problems No known active problems Encounters Date Type Department Care Team Description 01/02/2024 2:00 PM CDT Office Visit [facility] [address] [phone] Raymond Singh MD Monocular esotropia (Primary Dx); Hypotropia of right eye; Thyroid eye disease; Diplopia 01/02/2024 Travel 12/30/2023 Travel from Last 3 Months Family History Medical History Relation Comments Diabetes Maternal Grandmother Glaucoma Maternal Grandmother Macular Degeneration No family hx of Relation Status Comments Maternal Grandmother Social History Tobacco Use Types Packs/Day Years Used Date Smoking Tobacco: Former Cigarettes Q uit: 08/15/1994 Smokeless Tobacco: Never Tobacco Cessation:Counseling Given: Not Answered PHQ-2 Answer Date Recorded PHQ-2 Score 0 01/02/2024 Adolescent Education Answer Date Record ed Getting School Help Needed Not on file 05/30 Sex and Gender Information Value Date Recorded Sex Assigned at Not on file Gender Identity Not on file Sexual Orientation Not on file Plan of Treatment Upcoming Encounters Date Type Department Care Team (Late st Contact Info) Description 07/02/2024 2:00 PM MENTAL MEASUREMENTS TEACHER Office Visit [facility] [address] [place] [address] [phone] Raymond Singh MD [address] [place] [place], [place] [address] Health Maintenance Due Date Last Done Comments ADVANCE CARE PLANNING 1969 ANNUAL REVIEW OF HM ORDERS [address] CT COLONOGRAPHY 1969 FIT 1969 FLEX SIG 1969 GLUCOSE 1969 LIPID 1969 YEARLY PREVENTIVE VISIT 1969 sDNA (Cologuard) 1969 COLONOSCOPY 1979 COLORECTAL CANCER SCREENING 1979 HIV SCREENING 1984 HEPATITIS C SCREENING 1987 HEPATITIS B IMMUNIZATION (1 of 3 - 19+ 3-dose series) 1988 COVID-19 Vaccine ( season) 2023 06/11/2021, 11/22/2020, 11/01/2020 DTAP/TDAP/TD IMMUNIZATION (3 - Td or Tdap) 06/05/2030 06/05/2020, 03/09/2011, 09/21/2002 Pneumococcal Vaccine: Pediatrics (0 to 5 Years) and At-Risk Patients (6 to 64 Years) Aged Out 04/02/2015 No longer eligible based on patient's age to complete this topic ZOSTER IMMUNIZATION Completed 11/08/2022, INFLUENZA VACCINE Completed 07/28/2023, , 06/11/2021, Additional history exists PHQ-2 (once per calendar year) Completed 01/02/2024, 03/14/2023, 11/07/2022 HPV IMMUNIZATION Aged Out No longer e [...] Priority Date/Time Associated Diagnosis Comments SENSORIMOTOR Routine 01/02/2024 2:57 PM CDT Monocular esotropia Hypotropia of right eye from Last 3 Months Results * Sensorimotor (01/02/2024 2:57 PM CDT) Narrative Raymond Singh MD - 01/02/2024 2:57 PM CDT Performed by: SEAMUS Berry Patient cooperation: Reliable . Reliability of the test: Good . Test Findings: Strabismus . Interpretation: Esotropia, Hypertropia, Thyroid eye disease . Plan: Will monitor and consider eye muscle surgery . Interval: Same . Raymond Singh MD OPHTHALMOLOGY from Last 3 Months Care Teams Electrician Helper Automotive Relationship Specialty Start Date End Date Isael Lockhart MD [facility] [address] [place] [address] PCP - General Family Medicine 12/28/23 Raymond Singh MD [address] [place] [id number] Assigned Surgical Provider 03/19/23
--- OUTSIDE RECORDS SUMMARY | 2024-02-08 09:01 | XMS_ITS | Encounter Summary ---
Author Organization [place] Address [facility] [place] [address] Care Team Providers Care Tube Operator Name Role Phone Raymond Singh MD Unavailable [phone] Isael Lockhart MD Primary Care Provider [phone] Reason for Visit * Reason Comments Thyroid Disease Diplopia improves wi th fresnel. believes that the eye proptosis has improved. Had a couple of episodes in which the right eye would tear a lot when he had a cold. Bright light is also a trigger. Episodes lasted for a few days. Used AT for relief.Uses AT as needed Encounter Details Date Type Department Care Team (Late st Contact Info) Description 01/02/2024 2:00 PM CDT Office Visit [facility] [address] [phone] Raymond Singh MD 6 [place], [place] [address] Monocular esotropia (Primary Dx); Hypotropia of right eye; Thyroid eye disease; Diplopia Social History Tobacco Use Types Packs/Day Years [...] on file documented as of this encounter Patient Instructions * Patient Instructions* Raymond Singh MD - 01/02/2024 2:00 PM CDT You have been diagnosed with Dry eye syndrome. Symptoms of Dry eye syndrome can include double vision, eye pain, blurry vision, stinging, burning, tearing, eye redness. Some useful instructions are listed below: 1. Use artificial tears on a regular basis. If you use artificial tear drops with preservative, youcan use them up to 4-6 times per day. If you use artificial tear drops without preservatives, then you can use them more often. 2. Wash your eyelashes with hot water. Do not make the water so hot that you burn yourself, but thewater should be more than just warm. Often patients will wash their eyelashes in the shower under the hot water. You should rub gently along the base of your eyelashes. 3. Taking fish oil capsules twice a day for a month and then once a day after that can help improveDry eye symptoms. 4. Drink a lot of water. Hydration can be helpful. 5. Humidify your environment. 6. If this is not beneficial, other treatments can include punctal plugs or cautery, corticosteroideye drops, Restasis, Lipiflow, or autologous serum. If you are still struggling with dry eye symptoms, call Dr. Singh's office for other therapies or a referral to a dry eye care professional. documented in this encounter Progress Notes * Raymond Singh MD - 01/02/2024 2:00 PM CDT Images from the original note were not included. THYROID EYE DISEASE CLINIC - VISIT NOTE Referring physician: Dr. Jorge Ramey HPI: Since last visit patient has been wearing fresnel prism which resolves his double vision. During the first week of November he had a cold and he noticed that lights and fluorescence lights hurt his right eye, he had tearing, his right eye felt dry. Then last week he had similar incident when he notices his right eye was tearing and he was light sensitive with right eye pain. He has been using artificial tears during these times which eventually does help with his symptoms. He feels like his eyelidare doing better and he doesn't feel like his right eye is as bulgy. HPI: He was diagnosed with Graves Disease [...] with Radha Sutherland at [facility]. Thyroid history: Diagnosed when? Diagnosed with graves disease 10/2022 TERRELL: no Thyroidectomy: no Methazolamide 5 mg daily and 10 mg on Mondays and Selenium TSI Elevated to 1.57 [<0.54] on 02/17/23 TSH NEMO LABS ONLY MRI Brain WWO 10/21/22: Eye symptoms (since when): since 06/2023 Proptosis (better/worse/same since last visit): better Diplopia(better/worse/same since last visit): same, constant (improved with Fresnel) Eyelid retraction(better/worse/same since last visit): better Tearing(better/worse/same since last visit): better, intermittently really bad Redness (better/worse/same since last visit): better Pain (better/worse/same since last visit): better Pain to move the eyes (better/worse/same since last visit): none Blurred vision: Same, only with epiphora Ocular history: Orbital decompression: none Strabismus surgery: none Eyelid surgery: none Medical history: Type 1 Diabetes - last A1c 7.6 a few weeks ago Patient has a current medication list which includes the following prescription(s): aspirin, atorvastatin, humalog kwikpen, levemir flextouch, lisinopril, multiple vitamin, and omega-3 fatty acids. Patient reports that he quit smoking about 29 years ago. His smoking use included cigarettes. He has never used smokeless tobacco. Smoked for about 8 years in teens/early 20's Exam: Licha: 20/100 Better/worse same: worse Strabismus (better/worse/same): Right ET and right hypo - measuring similar to previous, continues to fuse with current fresnel Eyelid retraction (better/worse/same): right upper lid retraction BUCK Score: 1. Spontaneous orbital pain. 0 2. Gaze evoked orbital pain. 0 3. Eyelid swelling due to active thyroid eye disease 1 4. Eyelid erythema. 1 5. Conjunctival redness due to active thyroid eye disease . 0 6. Chemosis. 1 7. Inflammation of caruncle OR plica. 0 Patients assessed after follow-up can be scored out of 10 by including items 8-10. 8. Increase of > 2mm in proptosis. 1 9. Decrease in uniocular excursion in any direction of > 8??. 0 10. Decrease of acuity equivalent to 1 Snellen line. 0 UBCK SCORE = 4/10 Galindo Diplopia Score = 3 0 = no diplopia 1 = intermittent (when tired, upon waking, end of day etc) 2 = inconstant (extreme gazes) 3 = constant Lon Garcia is a 52 year old male with the following diagnoses: 1. 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 Thyroid eye disease 4. Diplopia Diagnosed with Grave's Disease in November 2022. Onset of eye symptoms including bulging and double vision several months before diagnosis. TSI elevated to 1.57 on 02/17/23. Has right esotropia and hypotropia. Fresnel prisms fit on glasses which largely resolves the diplopia. This patient has moderate active thyroid eye disease. Subjectively improved since last visit. BUCK score slightly improved today 4/10 compared to 5/10 at last visit. Sensorimotor exam with RET and R Hypo measuring stable today but doing well in current prism correction. Eyelid retraction improved. Ocular surface inflammation slightly improve today left eye, worseright eye. Former smoker (quit 30 years ago). On methimazole managed by senior front end web developer. Previously discussed options for treatment of active IMANI including IV corticosteroids vs Tepezza vs orbital radiation vs monitoring at last visit; Tepezza was deferred given history of diabetes and risk of hearing loss. Have previously discussed with patient that strabismus surgery is not recommended during active phasebut can be considered once his thyroid eye disease is chronic/inactive. Continue current fresnel prism correction Continue artificial tears QID Start AT nacho on days symptoms are worse Follow up in 4-6 months. Attending Physician [...] and management plan with the patient and anneliese logan. I personally reviewed the ophthalmic test(s) associated with this encounter, agree with the interpretation(s) as documented by the resident/fellow, and have edited the corresponding report(s) as necessary. - Raymond Russell MD Fellow, Neuro-Ophthalmology documented in this encounter Nursing Notes * Jigna Lord CO - 01/02/2024 2:00 PM CDT Chief Complaint(s) and History of Present Illness(es) Thyroid Disease Laterality: both eyes Course: stable Associated symptoms: double vision. Negative for eye pain Comments: Diplopia improves with fresnel. believes that the eye proptosis has improved. Had a couple of episodes in which the right eye would tear a lot when he had a cold. Bright light is also a trigger. Episodes lasted for a few days. Used AT for relief. Uses AT as needed documented in this encounter Plan of Treatment Upcoming Encounters Date Type Department Care Team (Late st Contact Info) Description 07/02/2024 2:00 PM SUPERVISOR MALTED MILK Office Visit [facility] [address] [phone] Raymond Singh MD [address] [place] [address] documented as of this encounter Procedures Procedure Name Priority Date/Time Associated Diagnosis Comments SENSORIMOTOR Routine 01/02/2024 2:57 PM CDT Monocular esotropia Hypotropia of right eye documented in this encounter Results * Sensorimotor (01/02/2024 2:57 PM CDT) [...] documented in this encounter Visit Diagnoses Diagnosis Monocular esotropia- Primary 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 - [address] [address] PCP - General Family Medicine 12/28/23 Raymond Singh MD [address] [place] [address] Assigned Surgical Provider 03/19/23 documented as of this encounter
--- OUTSIDE RECORDS SUMMARY | 2024-02-08 09:01 | XMS_ITS | Encounter Summary ---
Author Organization [place] Address [address] [place] [address]. [place] [address] Care Team Providers Care Sales Secretary Name Role Phone System, Provider Not In Primary Care Provider Un available Raymond Singh MD Unavailable [phone] Isael Lockhart MD Primary Care Provider [phone] Reason for Visit * Reason Onset Date Comments Referral 10/29/2022 Dx-Thyrotoxicosi s, unspecified without thyrotoxic crisis or storm [E05.90] Encounter Details Date Type Department Care Team (Late st Contact Info) Description 10/29/2022 [facility] - [address] [place] [address] None Referral (Dx-Thyrotoxicosis, unspecified without thyrotoxic crisis [...] Carisa Foster - 10/29/2022 11:01 AM CDT [facility] Call Center Phone Message May a detailed message be left on voicemail: yes Reason for Call: Appointment Intake Referring Provider Name: Rafa Hatfield, OD in GENERIC EXTERNAL DATA DEPARTMENT Diagnosis [...] Message routed to: [facility] eye Travel Screening: Not Applicable documented in this encounter Plan of Treatment Upcoming Encounters Date Type Department Care Team (Late st Contact Info) Description 07/02/2024 2:00 PM INDUSTRIAL INSULATOR Office Visit [facility] [address] [phone] Raymond Singh MD [address] [place] [address] documented as of this encounter Visit Diagnoses Not on filedocumented in this encounter Care Teams Sales Secretary Relationship Specialty Start Date End Date System, Provider Not In PCP - General Clinic 10/29/22 10/29/22 Isael Lockhart MD [facility] [address] [place] [address] PCP - General Family Medicine 12/28/23 Raymond Singh MD [address] [place] [id number] Assigned Surgical Provider 03/19/23 documented as of this encounter
--- OUTSIDE RECORDS SUMMARY | 2024-02-08 09:01 | XMS_ITS | Encounter Summary ---
Author Organization [place] Address [facility] [place] [address] Care Team Providers Care Regional Account Director Name Role Phone Raymond Singh MD Unavailable [phone] Isael Lockhart MD Primary Care Provider Encounter Details Date Type Department Care Team (Latest Contact Info) Description 01/02/2024 Travel Social History Tobacco Use Types Packs/Day [...] st Contact Info) Description 07/02/2024 2:00 PM ACCOUNTS PAYABLE SPECIALIST Office Visit [facility] [address] [facility] [address] [facility] [address] [phone] Raymond Singh MD [address] [place] [address] documented as of this encounter Visit Diagnoses Not on filedocumented in this encounter Care Teams Regional Account Director Relationship Specialty Start Date End Date Isael Lockhart MD [facility] [address] [place] [address] PCP - General Family Medicine 12/28/23 Raymond Singh MD [address] [place] [phone] Assigned Surgical Provider 03/19/23 documented as of this encounter
--- OUTSIDE RECORDS SUMMARY | 2024-02-08 09:01 | XMS_ITS | Referral Summary ---
Author Organization [place] Address [facility] [place] [address] Care Team Providers Care Lay Out Machine Operator Name Role Phone Raymond Singh MD Unavailable [phone] Isael Lockhart MD Primary Care Provider [phone] Encounters Date Type Department Care Team Description 01/02/2024 Travel 01/02/2024 2:00 PM CDT Office Visit [facility] [address] [phone] Raymond Singh MD Monocular esotropia (Primary Dx); Hypotropia of right eye; Thyroid eye disease; Diplopia 12/30/2023 Travel from Last 3 Months Allergies No known [...] Active Multiple Vitamin (MULTIVITAMIN PO) daily Active [place]-3 Fatty Acids (FISH OIL PO) Take by mouth daily Activ e Active Problems No known active problems Social History Tobacco Use Types Packs/Day Years [...] st Contact Info) Description 07/02/2024 2:00 PM PRODUCTION SPECIALIST Office Visit [facility] [address] [facility] [address] [place] [phone] Raymond Singh MD [address] [place] [address] Procedures Procedure Name Priority Date/Time Associated Diagnosis [...] OPHTHALMOLOGY from Last 3 Months Care Teams Lay Out Machine Operator Relationship Specialty Start Date End Date Isael Lockhart MD NPI: [id number] [place] [address] [address] [place] [address] PCP - General Family Medicine 12/28/23 Raymond Singh MD [address] [place] [address] Assigned Surgical Provider 03/19/23
[2024-02-08 11:48] LABS: Free T4 Free Thyroxine* 0.99 ng/dL (0.70-1.85)
[2024-02-09 19:55] LABS: Free T3 3.2 pg/mL (2.5-4.3)
== END 2024-02-08 08:57 | disposition home or self-care (01) ==
LOC: NPINS 08:56
PROVIDERS: PCP Family Medicine; Visit Provider Internal Medicine Endocrinology, Diabetes & Metabolism
DX: E05.00 Thyrotoxicosis with diffuse goiter without thyrotoxic crisis or storm (principal)
CPT/HCPCS: 84439; 84443; 84481

== ENCOUNTER 2024-04-11 09:29 | Outpatient (CLI) | payer OTHER, SELFPAY ==
--- OUTSIDE RECORDS SUMMARY | 2024-04-11 09:31 | XMS_ITS | Encounter Summary ---
Author Organization [place] Address [facility] [place] [address] Care Team Providers Care Raw Products Director Name Role Phone Raymond Singh MD Unavailable [phone] Isael Lockhart MD Primary Care Provider [...] st Contact Info) Description 07/02/2024 2:00 PM VET ASSISTANT Office Visit [facility] [address] [facility] [address] [facility] [address] [phone] Raymond Singh MD [address] [place] [address] documented as of this encounter Visit Diagnoses Not on filedocumented in this encounter Care Teams Raw Products Director Relationship Specialty Start Date End Date Isael Lockhart MD [facility] [address] [place] [address] PCP - General Family Medicine 12/28/23 Raymond Singh MD [address] [place] [address] Assigned Surgical Provider 03/19/23 documented as of this encounter
--- OUTSIDE RECORDS SUMMARY | 2024-04-11 09:31 | XMS_ITS | Encounter Summary ---
Author Organization [place] Address [address] [place] [address]. [place] [address] Care Team Providers Care House Painting Instructor Name Role Phone System, Provider Not In Primary Care Provider Un available Raymond Singh MD Unavailable [phone] Isael Lockhart MD Primary Care Provider [phone] Reason for Visit * Reason Onset Date Comments Referral 10/29/2022 Dx-Thyrotoxicosi s, unspecified without thyrotoxic crisis or storm [E05.90] Encounter Details Date Type Department Care Team (Late st Contact Info) Description 10/29/2022 [facility] - [address] [place] [address] None Referral (Dx-Thyrotoxicosis, unspecified without thyrotoxic crisis [...] Carisa Foster - 10/29/2022 11:01 AM CDT [facility] Call Center Phone Message May a [...] st Contact Info) Description 07/02/2024 2:00 PM MACHINE FORMER Office Visit [facility] [address] [phone] Raymond Singh MD [address] [place] [address] documented as of this encounter Visit Diagnoses Not on filedocumented in this encounter Care Teams House Painting Instructor Relationship Specialty Start Date End Date System, Provider Not In PCP - General Clinic 10/29/22 10/29/22 Isael Lockhart MD [facility] [address] [place] [address] PCP - General Family Medicine 12/28/23 Raymond Singh MD [address] [place] [id number] Assigned Surgical Provider 03/19/23 documented as of this encounter
--- OUTSIDE RECORDS SUMMARY | 2024-04-11 09:31 | XMS_ITS | Clinical Summary ---
Author Organization [place] Address [address] [place] [address]. [place] [address] Care Team Providers Care Inspector Hairspring Truing Name Role Phone Raymond Singh MD Unavailable Isael Lockhart MD Primary Care Provider [phone] Allergies No known active allergies Medications Medication [...] Active Multiple Vitamin (MULTIVITAMIN PO) daily Active [place]-3 Fatty Acids (FISH OIL PO) Take by mouth daily Activ e Active Problems No known active problems Family History Medical History Relation Comments Diabetes [...] st Contact Info) Description 07/02/2024 2:00 PM ANTHROPOLOGIST Office Visit [facility] [address] [phone] Raymond Singh MD [address] [place], [place] [address] Health Maintenance Due Date Last Done Comments ADVANCE CARE PLANNING 1969 ANNUAL REVIEW OF HM ORDERS 1969 CT COLONOGRAPHY 1969 FIT 1969 FLEX SIG 1969 GLUCOSE 1969 LIPID 1969 YEARLY PREVENTIVE VISIT 1969 sDNA (Cologuard) 1969 COLONOSCOPY 1979 COLORECTAL CANCER SCREENING 1979 HIV SCREENING 1984 HEPATITIS C SCREENING 1987 HEPATITIS B IMMUNIZATION (1 of 3 - 19+ 3-dose series) 1988 COVID-19 Vaccine ( - 2022- season) 2023 06/11/2021, 11/22/2020, 11/01/2020 INFLUENZA VACCINE (#1) 2024 3, 07/19/2022, 06/11/2021, Additional history exists DTAP/TDAP/TD IMMUNIZATION (3 - Td or Tdap) 06/05/2030 06/05/2020, 03/09/2011, 09/21/2002 Pneumococcal Vaccine: Pediatrics (0 to 5 Years) and At-Risk Patients (6 to 64 Years) Aged Out 04/02/2015 No longer eligible based on patient's age to complete this topic ZOSTER IMMUNIZATION Completed 11/08/2022, 2 PHQ-2 (once per calendar year) Completed 01/02/2024, 03/14/2023, 11/07/2022 HPV IMMUNIZATION Aged Out No longer e ligible based on patient's age to complete this topic MENINGITIS IMMUNIZATION Aged Out No l onger eligible based on patient's age to complete this topic RSV MONOCLONAL ANTIBODY Aged Out No l onger eligible based on patient's age to complete this topic Care Teams Inspector Hairspring Truing Relationship Specialty Start Date End Date Isael Lockhart MD [facility] & [address] [address] PCP - General Family Medicine 12/28/23 Raymond Singh MD [address] [place] [address] Assigned Surgical Provider 03/19/23
--- OUTSIDE RECORDS SUMMARY | 2024-04-11 09:31 | XMS_ITS | Encounter Summary ---
Author Organization [place] Address [facility] [place] [address] Care Team Providers Care Online Journalist Name Role Phone Raymond Singh MD Unavailable [phone] Isael Lockhart MD Primary Care Provider [phone] Reason for Visit * Reason Comments Thyroid [...] Description 01/02/2024 2:00 PM CDT Office Visit [facility] [address] [phone] Raymond Singh MD [address] [place], [place] [address] Monocular esotropia (Primary Dx); Hypotropia of right [...] therapies or a referral to a dry field marketing specialist. documented in this encounter Progress Notes * [...] with Radha Sutherland at [facility]. Thyroid history: Diagnosed when? Diagnosed with graves disease 10/2022 TERRELL: no Thyroidectomy: no Methazolamide 5 mg daily and 10 mg on Mondays and Selenium TSI Elevated to 1.57 [<0.54] on 02/17/23 TSH [facility] LABS ONLY MRI Brain WWO 10/21/22: Eye [...] 1 Snellen line. 0 BUCK SCORE = 4/10 Galindo Diplopia Score = [...] 30 years ago). On methimazole managed by debridging machine operator. Previously discussed options for treatment of active [...] st Contact Info) Description 07/02/2024 2:00 PM BODY SHOP FLOORPERSON Office Visit [facility] [address] [phone] Raymond Singh MD [address] [place] [address] documented as of this encounter Procedures Procedure [...] Diplopia documented in this encounter Care Teams Online Journalist Relationship Specialty Start Date End Date Isael Lockhart MD [facility] - [address] [place] [address] [address] PCP - General Family Medicine 12/28/23 Raymond Singh MD [address] [place] [address] Assigned Surgical Provider 03/19/23 documented as of this encounter
--- OUTSIDE RECORDS SUMMARY | 2024-04-11 09:31 | XMS_ITS | Referral Summary ---
Author Organization [place] Address [address] [place] [address]. [place] [address] Care Team Providers Care Tomographic Tech Name Role Phone Raymond Singh MD Unavailable [phone] Isael Lockhart MD Primary Care Provider [phone] Allergies No known active allergies Medications Medication [...] Active Multiple Vitamin (MULTIVITAMIN PO) daily Active [place]-3 Fatty Acids (FISH OIL PO) Take by [...] st Contact Info) Description 07/02/2024 2:00 PM U.S. COMMISSIONER Office Visit [facility] [address] [facility] [address] [place] [phone] Raymond Singh MD [address] [place], [place] [address] Care Teams Tomographic Tech Relationship Specialty Start Date End Date Isael Lockhart MD [facility] [address] [place] [address] PCP - General Family Medicine 12/28/23 Raymond Singh MD [address] [place] [phone] Assigned Surgical Provider 03/19/23
[2024-04-11 11:26] LABS: Alkaline Phosphatase* 81 U/L (40-150)
[2024-04-11 12:08] LABS: Free T4 Free Thyroxine* 1.13 ng/dL (0.70-1.85)
[2024-04-13 00:58] LABS: Total T3 131 ng/dL (80-200)
== END 2024-04-11 09:30 | disposition home or self-care (01) ==
LOC: NPINS 09:30
PROVIDERS: PCP Family Medicine; Visit Provider Internal Medicine Endocrinology, Diabetes & Metabolism
DX: E05.00 Thyrotoxicosis with diffuse goiter without thyrotoxic crisis or storm (principal)
CPT/HCPCS: 84075; 84439; 84443; 84480

== ENCOUNTER 2024-07-23 07:35 | Outpatient (CLI) | payer OTHER, SELFPAY | END 2024-07-23 07:36 | disposition home or self-care (01) | LOC: NFLDREF 07-26 04:13 | PROVIDERS: PCP Family Medicine; Referring Provider Family Medicine; Visit Provider Family Medicine | DX: E10.9 Type 1 diabetes mellitus without complications (principal); E78.5 Hyperlipidemia, unspecified; I10 Essential (primary) hypertension; Z79.4 Long term (current) use of insulin | CPT/HCPCS: 80053; 80061; 82043; 82570 ==

== ENCOUNTER 2024-07-23 10:54 | Outpatient (REF) | payer OTHER, SELFPAY ==
--- OUTSIDE RECORDS SUMMARY | 2024-07-23 10:57 | XMS_ITS | Encounter Summary ---
Author Organization [facility] Address [address] [place], [place] [address] [address] Care Team Providers Care Prosthodontist Name Role Phone System, Provider Not In Primary Care Provider Un available Raymond Singh MD Unavailable Isael Lockhart MD Primary Care Provider [phone] Reason for Visit * Reason Onset Date Comments Referral 10/29/2022 Dx-Thyrotoxicosi s, unspecified without thyrotoxic crisis or storm [E05.90] Encounter Details Date Type Department Care Team (Late st Contact Info) Description 10/29/2022 [facility] Eye [address] [place] [address] None Referral (Dx-Thyrotoxicosis, unspecified without thyrotoxic crisis or storm [E05.90]) Social History Tobacco Use Types Packs/Day Years Used Date Smoking Tobacco: Never Assessed Sex and Gender Information Value Date Recorded Sex Assigned at Not on file Legal Sex Male 3:40 AM CHAIN MAKER Gender Identity Not on file Sexual Orientation Not on file documented as of this encounter Miscellaneous Notes * Telephone Encounter - Silvino Washington - 11/01/2022 7:52 AM CDT Sent new patient packet..silvino * Telephone Encounter - Cristian Carisa G - 10/29/2022 11:01 AM CDT [facility] Phone Message May a detailed message be left on voicemail: yes Reason for Call: Appointment Intake Referring Provider Name: Alysia Rafa C, OD in [facility] Diagnosis and/or Symptoms: Thyrotoxicosis, [...] Upcoming Encounters Date Type Department Care Team (Latest Contact Info) Description 09/12/2024 12:20 PM CHAIN MAKER Hospital Encounter [address] [phone] Mayo Pena MD [address] [place] [address] 09/12/2024 12:20 PM CHAIN MAKER - 09/12/2024 1:25 PM CHAIN MAKER Surgery [address] [phone] Mayo Pena MD [address] [place] [address] RIGHT DECOMPRESSION, ORBIT, USING JESSE NAVIGATION AND SONOPET 09/24/2024 9:45 AM CHAIN MAKER Office Visit [facility] - [address] [phone] Mayo Pena MD [address] [place] [phone] Scheduled Procedures Name Priority Associated Diagnoses Date/Ti me DECOMPRESSION, ORBIT, USING OPTICAL TRACKING SYSTEM Thyroid eye disease 09/12/2024 12:20 PM CHAIN MAKER documented as of this encounter Visit Diagnoses Not on filedocumented in this encounter Care Teams Prosthodontist Relationship Specialty Start Date End Date System, Provider Not In PCP - General Clinic 10/29/22 10/29/[address] [facility] [address] [place] [address] PCP - General Family Medicine 12/28/23 Raymond Singh MD [address] [facility] [address] [place] [address] Assigned Surgical Provider 03/19/23 documented as of this encounter
--- OUTSIDE RECORDS SUMMARY | 2024-07-23 10:57 | XMS_ITS | Encounter Summary ---
Author Organization [facility] Address [address] [place], [place] [address]. [place] [address] Care Team Providers Care Lay Out Maker Name Role Phone Raymond Singh MD Unavailable [phone] Isael Lockhart MD Primary Care Provider [phone] Encounter Details Date Type Department Care Team (Latest Contact Info) Description 07/01/2024 Travel Social History Tobacco Use Types Packs/Day Years Used Date Smoking Tobacco: Former Cigarettes Q uit: 08/15/1994 Smokeless Tobacco: Never PHQ-2 Answer Date Recorded PHQ-2 Score 0 01/02/2024 Adolescent Education Answer Date Record ed Getting School Help Needed Not on file 05/30 Sex and Gender Information Value Date Recorded Sex Assigned at Not on file Legal Sex Male 3:40 AM DIRECTOR OF IT OPERATIONS Gender Identity Not on file Sexual Orientation Not on file documented as of this encounter Plan of Treatment Upcoming Encounters Date Type Department Care Team (Latest Contact Info) Description 09/12/2024 12:20 PM DIRECTOR OF IT OPERATIONS Hospital Encounter [address] [phone] Mayo Pena MD [address] [place] [phone] 09/12/2024 12:20 PM DIRECTOR OF IT OPERATIONS - 09/12/2024 1:25 PM DIRECTOR OF IT OPERATIONS Surgery [address] [phone] Mayo Pena MD [address] [place] [phone] RIGHT DECOMPRESSION, ORBIT, USING JESSE NAVIGATION AND SONOPET 09/24/2024 9:45 AM DIRECTOR OF IT OPERATIONS Office Visit [facility] - [address] [place] [phone] Mayo Pena MD [address] [place] [address] [phone] Scheduled Procedures Name Priority Associated Diagnoses Date/Ti me DECOMPRESSION, ORBIT, USING OPTICAL TRACKING SYSTEM Thyroid eye disease 09/12/2024 12:20 PM DIRECTOR OF IT OPERATIONS documented as of this encounter Visit Diagnoses Not on filedocumented in this encounter Care Teams Lay Out Maker Relationship Specialty Start Date End Date Isael Lockhart MD [facility] [address] [place] [address] PCP - General Family Medicine 12/28/23 Raymond Singh MD [address] [place] [address] [address] [place], [place] [address] Assigned Surgical Provider 03/19/23 documented as of this encounter
--- OUTSIDE RECORDS SUMMARY | 2024-07-23 10:57 | XMS_ITS | Clinical Summary ---
Author Organization [facility] [place] [facility] Address [address] [place], [place] [address] [address] Care Team Providers Care Varnish Melter Name Role Phone Raymond Singh MD Unavailable [phone] Isael Lockhart MD Primary Care Provider [phone] Allergies No known active allergies Medications atorvastatin (LIPITOR) 20 MG tablet 20 MG ORALLY EVERY DAY AT BEDTIME 2 Active lisinopril (ZESTRIL) 20 MG tablet 20 MG ORALLY EVERY DAY 2 Active HUMALOG KWIKPEN 100 UNIT/ML soln INJECT 8-25 UNITS SUBCUTANEOUSLY 3 TIMES PER DAY WITH MEALS. 2 Active LEVEMIR FLEXTOUCH 100 UNIT/ML pen 60 UNIT (0.6 ML) SUBCUTANEOUSLY EVERY DAY AT BEDTIME 3 Active aspirin (ASA) 81 MG chewable tablet Active Multiple Vitamin (MULTIVITAMIN PO) daily Active [place]-3 Fatty Acids (FISH OIL PO) Take by mouth daily Active Active Problems Problem Noted Date Diagnosed Date Thyroid eye disease 07/02/2024 Encounters Date Type Department Care Team Description 07/11/2024 11:21 AM NON GARMENT SEWING MACHINE OPERATOR - 07/11/2024 11:59 PM [facility] Hospital Encounter [facility] [phone] [facility] [address] [place] [address] Raymond Singh MD Thyroid eye disease Discharge Disposition: Home or Self Care 07/11/2024 Travel 07/09/2024 Orders Only [facility] - [address] 4th [place] [address] Mayo Pena MD Thyroid eye disease (Primary Dx) 07/04/2024 Telephone [facility] - [address] [place] [phone] Mayo Pena MD Schedule Surgery 07/02/2024 2:00 PM NON GARMENT SEWING MACHINE OPERATOR Office Visit [facility] [address] [place] [address] [phone] Raymond Singh MD Monocular esotropia (Primary Dx); Hypotropia of right eye; Thyroid eye disease; Esotropia, right eye 07/02/2024 Travel 07/01/2024 Travel from Last 3 Months Family History [...] on file Legal Sex Male 3:40 AM NON GARMENT SEWING MACHINE OPERATOR Gender Identity Not on file Sexual Orientation Not on file Plan of Treatment Upcoming Encounters Date Type Department Care Team (Latest Contact Info) Description 09/12/2024 12:20 PM NON GARMENT SEWING MACHINE OPERATOR Hospital Encounter [address] [phone] Mayo Pena MD [address] [place] [address] 09/12/2024 12:20 PM NON GARMENT SEWING MACHINE OPERATOR - 09/12/2024 1:25 PM NON GARMENT SEWING MACHINE OPERATOR Surgery [address] [phone] Mayo Pena MD [address] [place] [address] [phone] RIGHT DECOMPRESSION, ORBIT, USING JESSE NAVIGATION AND SONOPET 09/24/2024 9:45 AM NON GARMENT SEWING MACHINE OPERATOR Office Visit [facility] - [address] [place] [address] Mayo Pena MD [address] [place] [phone] Scheduled Procedures Name Priority Associated Diagnoses Date/Ti me DECOMPRESSION, ORBIT, USING OPTICAL TRACKING SYSTEM Thyroid eye disease 09/12/2024 12:20 PM NON GARMENT SEWING MACHINE OPERATOR Health Maintenance Due Date Last Done Comments [...] 3-dose series) 1988 COVID-19 Vaccine ( season) 2024 06/11/2021, 11/22/2020, 11/01/2020 INFLUENZA VACCINE (#1) 2024 3, 07/19/2022, 06/11/2021, Additional history exists DTAP/TDAP/TD IMMUNIZATION (3 - Td or Tdap) 06/05/2030 06/05/2020, 03/09/2011, 09/21/2002 RSV VACCINE (1 - 1-dose 75+ series) 2044 Pneumococcal Vaccine: Pediatrics (0 to 5 Years) [...] on patient's age to complete this topic Goals Goal Patient Goal Type Associated Problems Recent Progress Patient-Stated? Author MYC ECC SURG ENROLL Care Plan MyC ECC SURG ENROLL No Kenzie Duke MYC ECC OPY 000 YOU MAY BE ENROLLED (HIGH RISK) - GOAL TEMPLATE Care Plan MYC ECC OPY 000 YOU MAY BE ENROLLED (HIGH RISK) - PROBLEM TEMPLATE No Kenzie Duke Procedures Procedure Name Priority Date/Time Associated Diagnosis Comments CT ORBITAL W/O CONTRAST Routine 07/11/2024 11:45 AM NON GARMENT SEWING MACHINE OPERATOR Thyroid eye disease EXTRA RED TOP TUBE Routine 07/02/2024 3: 55 PM NON GARMENT SEWING MACHINE OPERATOR EXTRA TUBE Routine 07/02/2024 3:55 PM NON GARMENT SEWING MACHINE OPERATOR [place] MISCELLANEOUS TEST Routine 07/02/2024 3:55 PM NON GARMENT SEWING MACHINE OPERATOR Thyroid eye disease LABORATORY MISCELLANEOUS ORDER Routine 07/02/2024 3:55 PM NON GARMENT SEWING MACHINE OPERATOR Thyroid eye disease EXTERNAL PHOTOS THYROID SERIES Routine 07/02/2024 3:13 PM NON GARMENT SEWING MACHINE OPERATOR Thyroid eye disease SENSORIMOTOR Routine 07/02/2024 3:08 PM NON GARMENT SEWING MACHINE OPERATOR Monocular esotropia Hypotropia of right eye from Last 3 Months Results * CT Orbital w/o Contrast (07/11/2024 11:45 AM NON GARMENT SEWING MACHINE OPERATOR) Anatomical Region Laterality Modality Head, SUBRAD CT NEURO, SUBRA D CT NEURO, UMP CT NEURO, RAD CT Computed Tomography Impressions 07/11/2024 2:40 PM NON GARMENT SEWING MACHINE OPERATOR Impression: 1. Thickening of the extraocular muscles on the right with relative sparing of the superior rectus. Mild proptosis on the right. No significant change compared to 10/21/2022. 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 2. Normal left orbit. INO MAIER MD SYSTEM ID: [id number] Narrative 07/11/2024 2:40 PM NON GARMENT SEWING MACHINE OPERATOR CT ORBITAL W/O CONTRAST 07/11/2024 11:45 AM History: thyroid eye disease; Thyroid eye disease; Thyroid eye disease Comparison: Brain MRI 10/21/2022 Technique: Using thin collimation multidetector helical acquisition technique, axial, coronal, sagittal CT images were obtained through the orbits and upper facial bones without IV contrast. Contrast: n/a Findings: There is no significant soft tissue or preseptal swelling of the orbits. There is no fracture of the facial bones. Alignment of the upper facial bones is normal. There is thickening of the extraocular muscles on the right with relative sparing of the superior rectus. Mild proptosis on the right. There is no hematoma or gas within the orbits. The visualized portions of the paranasal sinuses and mastoid air cells are clear. The cribriform plate appears intact. No evident abnormal contrast enhancement in either the preseptal or postseptal tissues. There is no preseptal or intra- or extraconal abscess. The intraconal and extraconal spaces bilaterally are normal. Bone density lesions in bilateral submandibular glands and the right submandibular gland, may represent clinical details Procedure Note Ino Maier MD - 07/11/2024 CT ORBITAL W/O CONTRAST 07/11/2024 11:45 AM History: thyroid eye disease; Thyroid eye disease; Thyroid eye disease Comparison: Brain MRI 10/21/2022 Technique: Using thin collimation multidetector helical acquisition technique, axial, coronal, sagittal CT images were obtained through the orbits and upper facial bones without IV contrast. Contrast: n/a Findings: There is no significant soft tissue or preseptal swelling of the orbits. There is no fracture of the facial bones. Alignment of the upper facial bones is normal. There is thickening of the extraocular muscles on the right with relative sparing of the superior rectus. Mild proptosis on the right. There is no hematoma or gas within the orbits. The visualized portions of the paranasal sinuses and mastoid air cells are clear. The cribriform plate appears intact. No evident abnormal contrast enhancement in either the preseptal or postseptal tissues. There is no preseptal or intra- or extraconal abscess. The intraconal and extraconal spaces bilaterally are normal. Bone density lesions in bilateral submandibular glands and the right submandibular gland, may represent clinical details Impression: 1. Thickening of the extraocular muscles on the right with relative sparing of the superior rectus. Mild proptosis on the right. No significant change compared to 10/21/2022. 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 2. Normal left orbit. INO MAIER MD SYSTEM ID: [id number] Raymond Singh MD IMG CT ORDERABLES Final Result * Extra Red Top Tube (07/02/2024 3:55 PM NON GARMENT SEWING MACHINE OPERATOR) Hold Specimen JI 07/02/2024 5:46 PM NON GARMENT SEWING MACHINE OPERATOR UR LABORATORY Blood STRUCTURE OF LEFT UPPER LIMB / Unknown Venipuncture / Unknown 07/02/2024 3:55 PM NON GARMENT SEWING MACHINE OPERATOR 07/02/2024 4:39 PM NON GARMENT SEWING MACHINE OPERATOR Raymond Singh MD LAB - BLOOD ORDERABLES Final Re sult UR LABORATORY [facility] [address] [place] [address], Room [place] [id number] * [facility]; FFTSI; Thyroid-stimulating Immunoglobulin (TSI) (Laboratory Miscellaneous Order) (07/02/2024 3:55 PM NON GARMENT SEWING MACHINE OPERATOR) Specimen Status Specimen received. Reordered and sent to performing laboratory. Report to follow upon completion. [facility] 07/02/2024 4:57 PM NON GARMENT SEWING MACHINE OPERATOR UR LABORATORY Performing Laboratory [facility] 07/02/2024 4:57 PM NON GARMENT SEWING MACHINE OPERATOR UR LABORATORY Test Name Thyroid-stimulati ng Immunoglobulin (TSI) [facility] 07/02/2024 4:57 PM NON GARMENT SEWING MACHINE OPERATOR UR LABORATORY Test Code FFTSI 07/02/2024 4:57 PM NON GARMENT SEWING MACHINE OPERATOR UR LABORATORY Blood STRUCTURE OF LEFT UPPER LIMB / Unknown Venipuncture / Unknown 07/02/2024 3:55 PM NON GARMENT SEWING MACHINE OPERATOR 07/02/2024 3:55 PM NON GARMENT SEWING MACHINE OPERATOR Raymond Singh MD LAB - BLOOD ORDERABLES Final Re sult UR LABORATORY [facility] [address] [facility], [address] [place] [address], [facility] * (ABNORMAL) FFTSI; Thyroid-stimulating Immunoglobulin (TSI) [facility] (07/02/2024 3:55PM NON GARMENT SEWING MACHINE OPERATOR) Pathologist [facility] Result SEE NOTE(A) 07/06/2024 7:23 AM NON GARMENT SEWING MACHINE OPERATOR [facility] Comment: Test Result Flag Unit RefValue Thyroid Stim Immunoglobulin 0.60 H IU/L 0.00-0.55 Test Performed by: [facility] [address] [address] Blood STRUCTURE OF LEFT UPPER LIMB / Unknown Venipuncture / Unknown 07/02/2024 3:55 PM NON GARMENT SEWING MACHINE OPERATOR 07/02/2024 3:55 PM NON GARMENT SEWING MACHINE OPERATOR us Raymond Singh MD LAB - BLOOD ORDERABLES Final Re sult Performing Organization Address City/[facility]/ZIP Co de Phone Number [facility] [address] [place], [place] [address] [phone] * External Photos Thyroid Series (07/02/2024 3:13 PM NON GARMENT SEWING MACHINE OPERATOR) Narrative Raymond Singh MD - 07/02/2024 3:13 PM NON GARMENT SEWING MACHINE OPERATOR The photographs are consistent with clinical exam of the patient. us Raymond Singh MD OPHTHALMOLOGY Final Result * Sensorimotor (07/02/2024 3:08 PM NON GARMENT SEWING MACHINE OPERATOR) Narrative Raymond Singh MD - 07/02/2024 3:08 PM NON GARMENT SEWING MACHINE OPERATOR Performed by: SEAMUS Sapp Patient cooperation: Reliable . Stable strab measurements. Reliability of the test: Good . Test Findings: Strabismus . Interpretation: Esotropia, Hypertropia . Plan: Will monitor and consider eye muscle surgery, Glasses . Interval: Same . Bronwyn [facility]blood [facility] OPHTHALMOLOGY Final Result from Last 3 Months Additional Health Concerns Active Problems Noted Date Diagnosed Date MyC ECC SURG ENROLL 07/04/2024 MYC ECC OPY 000 YOU MAY BE E NROLLED (HIGH RISK) - PROBLEM TEMPLATE 07/04/2024 Insurance [facility] CHOICE [facility] CHOICE Care Teams Varnish Melter Relationship Specialty Start Date End Date Isael Lockhart MD [facility] [address] [place] [address] PCP - General Family Medicine 12/28/23 Raymond Singh MD [address] [facility] [address] [place] [address] Assigned Surgical Provider 03/19/23
--- OUTSIDE RECORDS SUMMARY | 2024-07-23 10:57 | XMS_ITS | Referral Summary ---
Author Organization [facility] Address [address] [place] [address]. [place] [address] Care Team Providers Care Last Repairer Helper Name Role Phone Raymond Singh MD Unavailable [phone] Isael Lockhart MD Primary Care Provider [phone] Encounters Date Type Department Care Team Description 07/11/2024 Travel 07/11/2024 11:21 AM GEOSCIENCES FACULTY MEMBER - 07/11/2024 11:59 PM [facility] Hospital Encounter [facility] [address] [facility] [address] [place] [address] Raymond Singh MD Thyroid eye disease Discharge Disposition: Home or Self Care 07/09/2024 Orders Only [facility] - [address] [phone] Mayo Pena MD Thyroid eye disease (Primary Dx) 07/04/2024 Telephone [facility] - [address] [phone] Mayo Pena MD Schedule Surgery 07/02/2024 Travel 07/02/2024 2:00 PM GEOSCIENCES FACULTY MEMBER Office Visit [facility] [address] [phone] Raymond Singh MD Monocular esotropia (Primary Dx); Hypotropia of right eye; Thyroid eye disease; Esotropia, right eye 07/01/2024 Travel from Last 3 Months Allergies No known active allergies Medications atorvastatin [...] Active Multiple Vitamin (MULTIVITAMIN PO) daily Active Dallas-3 Fatty Acids (FISH OIL PO) Take by mouth daily Active Active Problems Problem Noted Date Diagnosed Date Thyroid eye disease 07/02/2024 Social History Tobacco Use Types Packs/Day Years [...] on file Legal Sex Male 3:40 AM GEOSCIENCES FACULTY MEMBER Gender Identity Not on file Sexual Orientation Not on file Plan of Treatment Upcoming Encounters Date Type Department Care Team (Latest Contact Info) Description 09/12/2024 12:20 PM GEOSCIENCES FACULTY MEMBER Hospital Encounter [address] [phone] Mayo Pena MD [address] [place] [address] 09/12/2024 12:20 PM GEOSCIENCES FACULTY MEMBER - 09/12/2024 1:25 PM GEOSCIENCES FACULTY MEMBER Surgery [address] [phone] Mayo Pena MD [address] [place] [address] RIGHT DECOMPRESSION, ORBIT, USING JESSE NAVIGATION AND SONOPET 09/24/2024 9:45 AM GEOSCIENCES FACULTY MEMBER Office Visit [facility] - [address] 4th [place] [address] Mayo Pena MD [address] [place] [address] Scheduled Procedures Name Priority Associated Diagnoses Date/Ti me DECOMPRESSION, ORBIT, USING OPTICAL TRACKING SYSTEM Thyroid eye disease 09/12/2024 12:20 PM GEOSCIENCES FACULTY MEMBER Goals Goal Patient Goal Type Associated Problems [...] ORBITAL W/O CONTRAST Routine 07/11/2024 11:45 AM GEOSCIENCES FACULTY MEMBER Thyroid eye disease EXTRA RED TOP TUBE Routine 07/02/2024 3: 55 PM GEOSCIENCES FACULTY MEMBER EXTRA TUBE Routine 07/02/2024 3:55 PM GEOSCIENCES FACULTY MEMBER SHELDON MISCELLANEOUS TEST Routine 07/02/2024 3:55 PM GEOSCIENCES FACULTY MEMBER Thyroid eye disease LABORATORY MISCELLANEOUS ORDER Routine 07/02/2024 3:55 PM GEOSCIENCES FACULTY MEMBER Thyroid eye disease EXTERNAL PHOTOS THYROID SERIES Routine 07/02/2024 3:13 PM GEOSCIENCES FACULTY MEMBER Thyroid eye disease SENSORIMOTOR Routine 07/02/2024 3:08 PM GEOSCIENCES FACULTY MEMBER Monocular esotropia Hypotropia of right eye from Last 3 Months Results * CT Orbital w/o Contrast (07/11/2024 11:45 AM GEOSCIENCES FACULTY MEMBER) Anatomical Region Laterality Modality Head, SUBRAD CT NEURO, SUBRA D CT NEURO, UMP CT NEURO, RAD CT Computed Tomography Impressions 07/11/2024 2:40 PM GEOSCIENCES FACULTY MEMBER Impression: 1. Thickening of the extraocular muscles on the right with relative sparing of the superior rectus. Mild proptosis on the right. No significant change compared to 10/21/2022. 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 2. Normal left orbit. INO MAIER MD SYSTEM ID: [id number] Narrative 07/11/2024 2:[address]ES FACULTY MEMBER CT ORBITAL W/O CONTRAST 07/11/2024 11:45 AM [...] left orbit. INO MAIER MD SYSTEM ID: [id number] Raymond Singh MD IMG CT ORDERABLES Final Result * Extra Red Top Tube (07/02/2024 3:55 PM GEOSCIENCES FACULTY MEMBER) Hold Specimen [facility] 07/02/2024 5:46 PM GEOSCIENCES FACULTY MEMBER UR LABORATORY Blood STRUCTURE OF LEFT UPPER LIMB / Unknown Venipuncture / Unknown 07/02/2024 3:55 PM GEOSCIENCES FACULTY MEMBER 07/02/2024 4:39 PM GEOSCIENCES FACULTY MEMBER Raymond Singh MD LAB - BLOOD ORDERABLES Final Re sult UR LABORATORY [facility] Acute Care Lab [facility], [address] [place] [phone] * [facility]; FFTSI; Thyroid-stimulating Immunoglobulin (TSI) (Laboratory Miscellaneous Order) (07/02/2024 3:55 PM GEOSCIENCES FACULTY MEMBER) Specimen Status Specimen received. Reordered and sent to performing laboratory. Report to follow upon completion. [facility] 07/02/2024 4:57 PM GEOSCIENCES FACULTY MEMBER UR LABORATORY Performing Laboratory [facility] 07/02/2024 4:57 PM GEOSCIENCES FACULTY MEMBER UR LABORATORY Test Name Thyroid-stimulati ng Immunoglobulin (TSI) [facility] 07/02/2024 4:57 PM GEOSCIENCES FACULTY MEMBER UR LABORATORY Test Code FFTSI 07/02/2024 4:57 PM GEOSCIENCES FACULTY MEMBER UR LABORATORY Blood STRUCTURE OF LEFT UPPER LIMB / Unknown Venipuncture / Unknown 07/02/2024 3:55 PM GEOSCIENCES FACULTY MEMBER 07/02/2024 3:55 PM GEOSCIENCES FACULTY MEMBER Raymond Singh MD LAB - BLOOD ORDERABLES Final Re sult UR LABORATORY [facility] Acute Care Lab [address] [facility], [address] [place] [address], [facility] * (ABNORMAL) FFTSI; Thyroid-stimulating Immunoglobulin (TSI) [place] [facility] (07/02/2024 3:55PM GEOSCIENCES FACULTY MEMBER) Pathologist [facility] Result SEE NOTE(A) 07/06/2024 7:23 AM GEOSCIENCES FACULTY MEMBER [facility] Comment: Test Result Flag Unit RefValue Thyroid Stim Immunoglobulin 0.60 H IU/L 0.00-0.55 Test Performed by: [employer] [address] Blood STRUCTURE OF LEFT UPPER LIMB / Unknown Venipuncture / Unknown 07/02/2024 3:55 PM GEOSCIENCES FACULTY MEMBER 07/02/2024 3:55 PM GEOSCIENCES FACULTY MEMBER Raymond Singh MD LAB - BLOOD ORDERABLES Final Re sult Performing Organization Address City/[facility]/ZIP Co de Phone Number [facility] [address] [place], [place] [address] [phone] * External Photos Thyroid Series (07/02/2024 3:13 PM GEOSCIENCES FACULTY MEMBER) Narrative Raymond Singh MD - 07/02/2024 3:13 PM GEOSCIENCES FACULTY MEMBER The photographs are consistent with clinical exam of the patient. us Raymond Singh MD OPHTHALMOLOGY Final Result * Sensorimotor (07/02/2024 3:08 PM GEOSCIENCES FACULTY MEMBER) Narrative Raymond Singh MD - 07/02/2024 3:08 PM GEOSCIENCES FACULTY MEMBER Performed by: SEAMUS Sapp . Patient cooperation: Reliable . Stable strab measurements. Reliability of the test: Good . Test Findings: Strabismus . Interpretation: Esotropia, Hypertropia . Plan: Will monitor and consider eye muscle surgery, Glasses . Interval: Same . [address] OPHTHALMOLOGY Final Result from Last 3 Months Additional Health Concerns Active Problems Noted Date Diagnosed Date MyC ECC SURG ENROLL 07/04/2024 MYC ECC OPY 000 YOU MAY BE E NROLLED (HIGH RISK) - PROBLEM TEMPLATE 07/04/2024 Insurance [facility] Care Teams Last Repairer Helper Relationship Specialty Start Date End Date Isael Lockhart MD [facility] [address] [place] [address] PCP - General Family Medicine 12/28/23 Raymond Singh MD [address] [address] Assigned Surgical Provider 03/19/23
--- OUTSIDE RECORDS SUMMARY | 2024-07-23 10:57 | XMS_ITS | Encounter Summary ---
Author Organization [facility] Address [address] [place] [address]. [place] [address] Care Team Providers Care Welder Plastic Name Role Phone Raymond Singh MD Unavailable [phone] Isael Lockhart MD Primary Care Provider [phone] Reason for Referral * Diagnostic Imaging CT Scan (Routine) - Closed Specialty Diagnoses / Procedures Referred By Contac t Referred To Contact Radiology. Diagnoses Thyroid eye disease Procedures CT Orbital w/o Contrast Raymond Singh MD [address] [facility] [address] [place] [address] Phone: tel: fax: [facility] [address] [facility] [address] [place] [address] Phone: tel: fax: Referral ID Status Reason Start Date Expiration Date Visits Re quested Visits Authorized [id number] Closed 07/02/2024 07/02/2025 1 1 SUPERVISOR Reason for Visit * Reason Comments Thyroid Disease Pt notes tearing of eyes has significantly improved since LV. Light sensitivity has improved since LV. Before last visit, pt would have episodes of severe tearing and light sens that would last 1 week. No episodes in the last few months. Pt hopeful he is in remission. Thyroid labs are reportedly normal. Taking Methimazole 5 mg , , - dose stable since early summer. Waiting on treatment plan from today's visit before going off methimazole. Diplopia stable with Fresnel.Inf: pt and Encounter Details Date Type Department Care Team (Late st Contact Info) Description 07/02/2024 2:00 PM CAB SUPERVISOR Office Visit [facility] [address] [place] [facility] 3rd [place] [phone] Raymond Singh MD [address] [facility] [address] [place] [address] Monocular esotropia (Primary Dx); Hypotropia of right eye; Thyroid eye disease; Esotropia, right eye Social History Tobacco Use Types Packs/Day Years Used Date Smoking Tobacco: Former Cigarettes Q uit: 08/15/1994 Smokeless Tobacco: Never PHQ-2 Answer Date Recorded PHQ-2 Score 0 01/02/2024 Adolescent Education Answer Date Record ed Getting School Help Needed Not on file 05/30 Sex and Gender Information Value Date Recorded Sex Assigned at Not on file Legal Sex Male 3:40 AM CAB SUPERVISOR Gender Identity Not on file Sexual Orientation Not on file documented as of this encounter Progress Notes * Raymond Singh MD - 07/02/2024 2:00 PM CST THYROID EYE DISEASE CLINIC - FOLLOW UP VISIT NOTE Referring physician: Dr. Sutherland HPI: Patient is following up for thyroid eye disease. He was diagnosed with graves disease in 10/2022. He first started to see double in Fall 2021, then bulging of the eye happened in Spring of 2022. He was given prisms first 02/2023, his diplopia has been the same since October 2022. He is using Methimazole 5 mg 3 times a week, from 6 months ago. His mainframe programmer analyst has told him that he has to be on this dose until he gets his eye surgery. Since last visit in 01/02/2024, he doesn't notice any changes in his eyes, including excessive watering, light sensitivity and foreign body sensation. This last happened in Spring time (01/2024). This lasted for 4 - 5 days. Follows with Radha Sutherland at [facility]. She has told patinet to continue Methimazole until surgery. He is using refresh 1 -2 times a day. His next lab for Hb A1C and thyroid function test is in 08/07. Thyroid history: Diagnosed when? Diagnosed with graves disease 10/2022 TERRELL: no Thyroidectomy: no Methazolamide 5 mg daily on Mondays, Tuesday and Tuesday. Selenium TSI TSH 04/11/24 TSH 3.58 3 Free thyrox 1.13 T3 131 Eye symptoms (since when): since 12/2023 Proptosis (better/worse/same since last visit): better Diplopia(better/worse/same since last visit): same, constant (see's single with Fresnel) Eyelid retraction(better/worse/same since last visit): Same Tearing(better/worse/same since last visit): better Redness (better/worse/same since last visit): better Pain (better/worse/same since last visit): better Pain to move the eyes (better/worse/same since last visit): none Blurred vision: Same, only with epiphora Ocular history: Orbital decompression: none Strabismus surgery: none Eyelid surgery: none Medical history: Type 1 Diabetes - last A1c 7.2 07/2023 Patient has a current medication list which includes the following prescription(s): aspirin, atorvastatin, humalog kwikpen, levemir flextouch, lisinopril, multiple vitamin, and omega-3 fatty acids. Patient reports that he quit smoking about 29 years ago. Exam: Licha: 22/19/100 Better/worse same: better Strabismus (better/worse/same): Right ET and right hypo - measuring similar to previous, continues to fuse with current fresnel Eyelid retraction (better/worse/same): right upper lid retraction ~ same BUCK Score: 1. Spontaneous orbital pain. 0 2. Gaze evoked orbital pain. 0 3. Eyelid swelling due to active thyroid eye disease 1 4. Eyelid erythema. 1 5. Conjunctival redness due to active thyroid eye disease . 0 6. Chemosis. 0 7. Inflammation of caruncle OR plica. 0 Patients assessed after follow-up can be scored out of 10 by including items 8-10. 8. Increase of > 2mm in proptosis. 0 9. Decrease in uniocular excursion in any direction of > 8 .0 10. Decrease of acuity equivalent to 1 Snellen line. 0 BUCK SCORE = 2/10 Galindo Diplopia Score = 3 0 = no diplopia 1 = intermittent (when tired, upon waking, end of day etc) 2 = inconstant (extreme gazes) 3 = constant Lon Garcia is a 53 year old male with the following diagnoses: 1. 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 Thyroid eye disease 4. Esotropia, right eye 1. Thyroid eye disease Patient is a 53 year old male with history of hyperthyroidism, in now euthyroid. In late 2021, patient developed diplopia and the bulging of the eyes. Her presentation and exam is consistent with inactive thyroid eye disease. Since 5 months ago, he mentions that he has been feeling better. BUCK score 2/10, better compared to prior. He has been stable since 01/02/2024. Continue current fresnel prism correction Continue artificial tears QID Follow up in 4-6 months. Will check thyroid stimulating immunoglobulin and CT orbit today. If the thyroid stimulating immunoglobulin has normalized then will schedule for orbital decompression. If it is still markedly elevated, then will continue observation. Historically, his TSI was 1.57 (normal <0.54). Plan: Right lateral orbital decompression Dr. Pena discussed the risks, benefits, and alternatives to decompression surgery. Risks include need for further surgery, infection, bleeding, loss of vision, double vision, changes in pupil size, droopy eyelid, spinal fluid leak, and scarring. Additionally there are separate and rarely potentially serious risks associated with general anesthesia Cisco Coffman MD Fellow, Neuro-ophthalmology Attending Physician Attestation: Complete documentation of historical [...] management plan with the patient and family. I personally reviewed the ophthalmic test(s) associated with this encounter, agree with the interpretation(s) as documented by the resident/fellow, and have edited the corresponding report(s) as necessary. - Raymond Singh MD SUPERVISOR documented in this encounter Nursing Notes * Bronwyn Youngblood CO - 07/02/2024 2:00 PM CST Chief Complaint(s) and History of Present Illness(es) Thyroid Disease Laterality: both eyes Comments: Pt notes tearing of eyes has significantly improved since LV. Light sensitivity has improved since LV. Before last visit, pt would have episodes of severe tearing and light sens that would last 1 week. No episodes in the last few months. Pt hopeful he is in remission. Thyroid labs are reportedly normal. Taking Methimazole 5 mg , , F- dose stable since early summer. Waiting on treatment plan from today's visit before going off methimazole. Diplopia stable with Fresnel. Inf: pt and Comments 04/11/24 TSH 3.58 3 Free thyrox 1.13 T3 131 SUPERVISOR documented in this encounter Plan of Treatment Upcoming Encounters Date Type Department Care Team (Latest Contact Info) Description 09/12/2024 12:20 PM CAB SUPERVISOR Hospital Encounter [address] [phone] Mayo Pena MD [address] [place] [address] 09/12/2024 12:20 PM CAB SUPERVISOR - 09/12/2024 1:25 PM CAB SUPERVISOR Surgery [address] [phone] Mayo Pena MD [address] [place] [address] RIGHT DECOMPRESSION, ORBIT, USING JESSE NAVIGATION AND SONOPET 09/24/2024 9:45 AM CAB SUPERVISOR Office Visit [facility] - [address] [place] [phone] Mayo Pena MD [address] [place] [address] Scheduled Procedures Name Priority Associated Diagnoses Date/Ti me DECOMPRESSION, ORBIT, USING OPTICAL TRACKING SYSTEM Thyroid eye disease 09/12/2024 12:20 PM CAB SUPERVISOR documented as of this encounter Goals Goal Patient Goal Type Associated Problems Recent Progress Patient-Stated? Author MYC ECC SURG ENROLL Care Plan MyC ECC SURG ENROLL No Kenzie Duke MYC ECC OPY 000 YOU MAY BE ENROLLED (HIGH RISK) - GOAL TEMPLATE Care Plan MYC ECC OPY 000 YOU MAY BE ENROLLED (HIGH RISK) - PROBLEM TEMPLATE No Kenzie Duke documented as of this encounter Procedures Procedure Name Priority Date/Time Associated Diagnosis Comments EXTRA TUBE Routine 07/02/2024 3:55 PM CAB SUPERVISOR EXTRA RED TOP TUBE Routine 07/02/2024 3: 55 PM CAB SUPERVISOR LABORATORY MISCELLANEOUS ORDER Routine 07/02/2024 3:55 PM CAB SUPERVISOR Thyroid eye disease RAMSEUR MISCELLANEOUS TEST Routine 07/02/2024 3:55 PM CAB SUPERVISOR Thyroid eye disease EXTERNAL PHOTOS THYROID SERIES Routine 07/02/2024 3:13 PM CAB SUPERVISOR Thyroid eye disease SENSORIMOTOR Routine 07/02/2024 3:08 PM CAB SUPERVISOR Monocular esotropia Hypotropia of right eye documented in this encounter Results * CT Orbital w/o Contrast (07/11/2024 11:45 AM CAB SUPERVISOR) Anatomical Region Laterality Modality Head, SUBRAD CT NEURO, SUBRA D CT NEURO, UMP CT NEURO, RAD CT Computed Tomography Impressions 07/11/2024 2:40 PM CAB SUPERVISOR Impression: 1. Thickening of the extraocular muscles on the right with relative sparing of the superior rectus. Mild proptosis on the right. No significant change compared to 10/21/2022. 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 2. Normal left orbit. OWEN MAIER MD SYSTEM ID: [id number] Narrative 07/11/2024 2:[address] ORBITAL W/O CONTRAST 07/11/2024 11:45 AM [...] gland, may represent clinical details Procedure Note Owen Maier MD - 07/11/2024 CT ORBITAL W/O [...] of thyroid orbitopathy. 2. Normal left orbit. OWEN MAIER MD SYSTEM ID: [id number] Raymond Singh MD IMG CT ORDERABLES Final Result * Extra Red Top Tube (07/02/2024 3:55 PM CAB SUPERVISOR) [facility] Specimen [facility] 07/02/2024 5:46 PM CAB SUPERVISOR UR LABORATORY Blood STRUCTURE OF LEFT UPPER LIMB / Unknown Venipuncture / Unknown 07/02/2024 3:55 PM CAB SUPERVISOR 07/02/2024 4:39 PM CAB SUPERVISOR Raymond Singh MD LAB - BLOOD ORDERABLES Final Re sult UR LABORATORY [facility] Acute Care Lab [facility], [address] [place] [address] * (ABNORMAL) FFTSI; Thyroid-stimulating Immunoglobulin (TSI) [facility] (07/02/2024 3:55PM CAB SUPERVISOR) [facility] Result SEE NOTE(A) 07/06/2024 7:23 AM CAB SUPERVISOR [facility] Comment: Test Result Flag Unit RefValue Thyroid Stim Immunoglobulin 0.60 H IU/L 0.00-0.55 Test Performed by: [employer] [address] Blood STRUCTURE OF LEFT UPPER LIMB / Unknown Venipuncture / Unknown 07/02/2024 3:55 PM CAB SUPERVISOR 07/02/2024 3:55 PM CAB SUPERVISOR Raymond Singh MD LAB - BLOOD ORDERABLES Final Re sult Performing Organization Address City/[facility] Co de Phone Number [facility] [address] [place] [id number], [facility] [phone] * [facility]; FFTSI; Thyroid-stimulating Immunoglobulin (TSI) (Laboratory Miscellaneous Order) (07/02/2024 3:55 PM CAB SUPERVISOR) Specimen Status Specimen received. Reordered and sent to performing laboratory. Report to follow upon completion. [facility] 07/02/2024 4:57 PM CAB SUPERVISOR UR LABORATORY Performing Laboratory [facility] 07/02/2024 4:57 PM CAB SUPERVISOR UR LABORATORY Test Name Thyroid-stimulati ng Immunoglobulin (TSI) [facility] 07/02/2024 4:57 PM CAB SUPERVISOR UR LABORATORY Test Code FFTSI 07/02/2024 4:57 PM CAB SUPERVISOR UR LABORATORY Blood STRUCTURE OF LEFT UPPER LIMB / Unknown Venipuncture / Unknown 07/02/2024 3:55 PM CAB SUPERVISOR 07/02/2024 3:55 PM CAB SUPERVISOR Raymond Singh MD LAB - BLOOD ORDERABLES Final Re sult Performing Organization Address [facility] de Phone Number UR LABORATORY [facility] Acute Care Lab [address] [facility], [address] [place] [address] * External Photos Thyroid Series (07/02/2024 3:13 PM CAB SUPERVISOR) Narrative Raymond Singh MD - 07/02/2024 3:13 PM CAB SUPERVISOR The photographs are consistent with clinical exam of the patient. Raymond Singh MD OPHTHALMOLOGY Final Result * Sensorimotor (07/02/2024 3:08 PM CAB SUPERVISOR) Narrative Raymond Singh MD - 07/02/2024 3:08 PM CAB SUPERVISOR Performed by: SEAMUS Sapp Patient cooperation: Reliable . Stable strab measurements. Reliability of the test: Good . Test Findings: Strabismus . Interpretation: Esotropia, Hypertropia . Plan: Will monitor and consider eye muscle surgery, Glasses . Interval: Same . 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
--- OUTSIDE RECORDS SUMMARY | 2024-07-23 10:57 | XMS_ITS | Encounter Summary ---
Author Organization [facility] Address [address] [place], [place] [address] [address] Care Team Providers Care Manager Academic Name Role Phone Raymond Singh MD Unavailable [phone] Isael Lockhart MD Primary Care Provider Encounter Details Date Type Department Care Team (Late st Contact Info) Description 07/09/2024 Orders Only [facility] - [address] [place] [address] Mayo Pena MD [address] [place] [address] Thyroid eye disease (Primary Dx) Social History Tobacco Use Types Packs/Day Years Used Date Smoking Tobacco: Former Cigarettes Q uit: 08/15/1994 Smokeless Tobacco: Never PHQ-2 Answer Date Recorded PHQ-2 Score 0 01/02/2024 Adolescent Education Answer Date Record ed Getting School Help Needed Not on file 05/30 Sex and Gender Information Value Date Recorded Sex Assigned at Not on file Legal Sex Male 3:40 AM NUMERICAL CONTROL TOOL PROGRAMMER Gender Identity Not on file Sexual Orientation Not on file documented as of this encounter Plan of Treatment Upcoming Encounters Date Type Department Care Team (Latest Contact Info) Description 09/12/2024 12:20 PM NUMERICAL CONTROL TOOL PROGRAMMER Hospital Encounter [address] [place] [phone] Mayo Pena MD [address] [place] [address] 09/12/2024 12:20 PM NUMERICAL CONTROL TOOL PROGRAMMER - 09/12/2024 1:25 PM NUMERICAL CONTROL TOOL PROGRAMMER Surgery [address] [place] [phone] Mayo Pena MD [address] [place] [address] [phone] RIGHT DECOMPRESSION, ORBIT, USING JESSE NAVIGATION AND SONOPET 09/24/2024 9:45 AM NUMERICAL CONTROL TOOL PROGRAMMER Office Visit [facility] - [address] [place] [address] Mayo Pena MD [address] [place] [address] [phone] Scheduled Procedures Name Priority Associated Diagnoses Date/Ti me DECOMPRESSION, ORBIT, USING OPTICAL TRACKING SYSTEM Thyroid eye disease 09/12/2024 12:20 PM NUMERICAL CONTROL TOOL PROGRAMMER documented as of this encounter Goals Goal [...] Kenzie Duke documented as of this encounter Visit Diagnoses Diagnosis Thyroid eye disease- Primary 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
--- OUTSIDE RECORDS SUMMARY | 2024-07-23 10:57 | XMS_ITS | Encounter Summary ---
Author Organization [facility] Address [address] [place] [address]. [place] [address] Care Team Providers Care Director Of Labor And Delivery Name Role Phone Raymond Singh MD Unavailable [phone] Isael Lockhart MD Primary Care Provider [phone] Reason for Visit * Reason Onset Date Comments Schedule Surgery 07/04/2024 Encounter Details Date Type Department Care Team (Late st Contact Info) Description 07/04/2024 Telephone [facility] - [address] [phone] Mayo Pena MD [address] [place] [address] Schedule Surgery Social History Tobacco Use Types Packs/Day Years Used Date Smoking Tobacco: Former Cigarettes Q uit: 08/15/1994 Smokeless Tobacco: Never PHQ-2 Answer Date Recorded PHQ-2 Score 0 01/02/2024 Adolescent Education Answer Date Record ed Getting School Help Needed Not on file 05/30 Sex and Gender Information Value Date Recorded Sex Assigned at Not on file Legal Sex Male 3:40 AM SHUFFLE BOARD OPERATOR Gender Identity Not on file Sexual Orientation Not on file documented as of this encounter Miscellaneous Notes * Telephone Encounter - Goldie Wheeler - 07/04/2024 1:36 PM CST Called patient to schedule surgery with Dr Pena Spoke with: Lon Date(s) of Surgery: 09/12/24 Patient aware of approximate arrival time: Yes Location of surgery: [facility] Pre-Op H&P: [facility] at [facility] Informed patient that they need to call to schedule pre-op H&P within 30 days of surgery date: Yes Post-Op Appt Dates: 09/24 Discussed with patient pre-op RN will call 2-3 days prior to surgery with arrival time and instructions: Yes Standard Surgery Packet Sent: Yes 07/04/24 via Mail - Standard Additional Information Sent in Packet: NA Informed patient that they will need an adult commercial front load driver to bring patient home from surgery: Yes Spring Upholsterer: Additional Comments: NA All patients questions were answered and was instructed to review surgical packet and call back [phone] with any questions or concerns. Goldie Wheeler on 07/04/2024 at 1:37 PM FLE BOARD OPERATOR FLE BOARD OPERATOR * Telephone Encounter - Goldie Wheeler - 07/04/2024 12:41 PM CST Left voicemail for patient regarding scheduling surgery with Dr. Pena. Provided contact number to discuss. [phone] Goldie Wheeler, on 07/04/2024 at 12:41 PM FLE BOARD OPERATOR documented in this encounter Plan of Treatment Upcoming Encounters Date Type Department Care Team (Latest Contact Info) Description 09/12/2024 12:20 PM SHUFFLE BOARD OPERATOR Hospital Encounter [address] [phone] Mayo Pena MD [address] [place] [phone] 09/12/2024 12:20 PM SHUFFLE BOARD OPERATOR - 09/12/2024 1:25 PM SHUFFLE BOARD OPERATOR Surgery [address] [phone] Mayo Pena MD [address] [place] [phone] RIGHT DECOMPRESSION, ORBIT, USING JESSE NAVIGATION AND SONOPET 09/24/2024 9:45 AM SHUFFLE BOARD OPERATOR Office Visit [facility] - [address] [place] [address] Mayo Pena MD [address] [place] [address] Scheduled Procedures Name Priority Associated Diagnoses Date/Ti me DECOMPRESSION, ORBIT, USING OPTICAL TRACKING SYSTEM Thyroid eye disease 09/12/2024 12:20 PM SHUFFLE BOARD OPERATOR documented as of this encounter Goals Goal [...] Diagnoses Not on filedocumented in this encounter Additional Health Concerns Active Problems Noted Date Diagnosed Date MyC ECC SURG ENROLL 07/04/2024 MYC ECC OPY 000 YOU MAY BE E NROLLED (HIGH RISK) - PROBLEM TEMPLATE 07/04/2024 documented as of this encounter Care Teams Director Of Labor And Delivery Relationship Specialty Start Date End Date Isael Lockhart MD [facility] [address] [place] [address] PCP - General Family Medicine 12/28/23 Raymond Singh MD 6 [facility] [address] [place] [address] Assigned Surgical Provider 03/19/23 documented as of this encounter
--- OUTSIDE RECORDS SUMMARY | 2024-07-23 10:57 | XMS_ITS | Encounter Summary ---
Author Organization [facility] Address [address] [place], [place] [address] [address] Care Team Providers Care Brake Lining Driller Name Role Phone Raymond Singh MD Unavailable [phone] Isael Lockhart MD Primary Care Provider [phone] Encounter Details Date Type Department Care Team (Latest Contact Info) Description 07/11/2024 Travel Social History Tobacco Use Types Packs/Day Years Used Date Smoking Tobacco: Former Cigarettes Q uit: 08/15/1994 Smokeless Tobacco: Never PHQ-2 Answer Date Recorded PHQ-2 Score 0 01/02/2024 Adolescent Education Answer Date Record ed Getting School Help Needed Not on file 05/30 Sex and Gender Information Value Date Recorded Sex Assigned at Not on file Legal Sex Male 3:40 AM LEAN SPECIALIST Gender Identity Not on file Sexual Orientation Not on file documented as of this encounter Plan of Treatment Upcoming Encounters Date Type Department Care Team (Latest Contact Info) Description 09/12/2024 12:20 PM LEAN SPECIALIST Hospital Encounter [address] [phone] Mayo Pena MD [address] [place] [address] 09/12/2024 12:20 PM LEAN SPECIALIST - 09/12/2024 1:25 PM LEAN SPECIALIST Surgery [address] [phone] Mayo Pena MD [address] [place] [address] RIGHT DECOMPRESSION, ORBIT, USING JESSE NAVIGATION AND SONOPET 09/24/2024 9:45 AM LEAN SPECIALIST Office Visit [facility] - [address] [place] [phone] Mayo Pena MD [address] [place] [phone] Scheduled Procedures Name Priority Associated Diagnoses Date/Ti me DECOMPRESSION, ORBIT, USING OPTICAL TRACKING SYSTEM Thyroid eye disease 09/12/2024 12:20 PM LEAN SPECIALIST documented as of this encounter Goals Goal [...] documented as of this encounter Care Teams Brake Lining Driller Relationship Specialty Start Date End Date Isael Lockhart MD [facility] [address] [place] [address] PCP - General Family Medicine 12/28/23 Raymond Singh MD 6 [facility] [address] [place], [place] [phone] Assigned Surgical Provider 03/19/23 documented as of this encounter
--- OUTSIDE RECORDS SUMMARY | 2024-07-23 10:57 | XMS_ITS | Encounter Summary ---
Author Organization [facility] Address [address] [place], [place] [address] [address] Care Team Providers Care Energy Auditor Name Role Phone Raymond Singh MD Unavailable [phone] Isael Lockhart MD Primary Care Provider [phone] Encounter Details Date Type Department Care Team (Latest Contact Info) Description 07/02/2024 Travel Social History Tobacco Use Types Packs/Day Years Used Date Smoking Tobacco: Former Cigarettes Q uit: 08/15/1994 Smokeless Tobacco: Never PHQ-2 Answer Date Recorded PHQ-2 Score 0 01/02/2024 Adolescent Education Answer Date Record ed Getting School Help Needed Not on file 05/30 Sex and Gender Information Value Date Recorded Sex Assigned at Not on file Legal Sex Male 3:40 AM TRAFFIC COUNTER Gender Identity Not on file Sexual Orientation Not on file documented as of this encounter Plan of Treatment Upcoming Encounters Date Type Department Care Team (Latest Contact Info) Description 09/12/2024 12:20 PM TRAFFIC COUNTER Hospital Encounter [address] [phone] Mayo Pena MD [address] [place] [address] 09/12/2024 12:20 PM TRAFFIC COUNTER - 09/12/2024 1:25 PM TRAFFIC COUNTER Surgery [address] [phone] Mayo Pena MD [address] [place] [address] RIGHT DECOMPRESSION, ORBIT, USING JESSE NAVIGATION AND SONOPET 09/24/2024 9:45 AM TRAFFIC COUNTER Office Visit [facility] - [address] [place] [phone] Mayo Pena MD [address] [place] [address] [phone] Scheduled Procedures Name Priority Associated Diagnoses Date/Ti me DECOMPRESSION, ORBIT, USING OPTICAL TRACKING SYSTEM Thyroid eye disease 09/12/2024 12:20 PM TRAFFIC COUNTER documented as of this encounter Visit Diagnoses Not on filedocumented in this encounter Care Teams Energy Auditor Relationship Specialty Start Date End Date Isael Lockhart MD [facility] [address] [place] [address] PCP - General Family Medicine 12/28/23 Raymond Singh MD [address] [place] [address] [address] [place], [place] [phone] Assigned Surgical Provider 03/19/23 documented as of this encounter
--- OUTSIDE RECORDS SUMMARY | 2024-07-23 10:57 | XMS_ITS | Encounter Summary ---
Author Organization [facility] Address [address] [place] [address]. [place] [address] Care Team Providers Care Director Independent Name Role Phone Raymond Singh MD Unavailable [phone] Isael Lockhart MD Primary Care Provider [phone] Reason for Referral * Diagnostic Imaging CT Scan (Routine) - Closed Specialty Diagnoses / Procedures Referred By Inder babb Referred To Contact Radiology. Diagnoses Thyroid eye disease Procedures CT Orbital w/o Contrast Raymond Singh MD [address] [place] [address] Phone: tel: fax: [facility] [id number] [place] [address] [place] [phone] Phone: tel: fax: Referral ID Status Reason Start Date Expiration Date Visits Re quested Visits Authorized [id number] Closed 07/02/2024 07/02/2025 1 1 AL DESIGNER Reason for Visit * Diagnostic Imaging CT Scan (Routine) - Closed Specialty Diagnoses / Procedures Referred By Inder babb Referred To Contact Radiology. Diagnoses Thyroid eye disease Procedures CT Orbital w/o Contrast Raymond Singh MD [address] [place] [address] Phone: tel: fax: [facility] [address] [place] [address] Phone: tel: fax: Referral ID Status Reason Start Date Expiration Date Visits Re quested Visits Authorized [id number] Closed 07/02/2024 07/02/2025 1 1 Encounter Details Date Type Department Care Team (Latest Contact Info) Description 07/11/2024 11:21 AM VISUAL DESIGNER - 07/11/2024 11:59 PM VISUAL DESIGNER Hospital Encounter [facility] [address] [facility] [address] [place] [address] Raymond Singh MD 6 [facility] [address] [place] [address] Thyroid eye disease Discharge Disposition: Home or Self Care Social History Tobacco Use Types Packs/Day Years Used Date Smoking Tobacco: Former Cigarettes Q uit: 08/15/1994 Smokeless Tobacco: Never PHQ-2 Answer Date Recorded PHQ-2 Score 0 01/02/2024 Adolescent Education Answer Date Record ed Getting School Help Needed Not on file 05/30 Sex and Gender Information Value Date Recorded Sex Assigned at Not on file Legal Sex Male 3:40 AM VISUAL DESIGNER Gender Identity Not on file Sexual Orientation Not on file documented as of this encounter Medications at Time of Discharge aspirin (ASA) 81 MG chewable tablet atorvastatin (LIPITOR) 20 MG tablet 20 MG ORALLY EVERY DAY AT BEDTIME 08/02/2022 HUMALOG KWIKPEN 100 UNIT/ML soln INJECT 8-25 UNITS SUBCUTANEOUSLY 3 TIMES PER DAY WITH MEALS. 07/23/2022 LEVEMIR FLEXTOUCH 100 UNIT/ML pen 60 UNIT (0.6 ML) SUBCUTANEOUSLY EVERY DAY AT BEDTIME 2022 lisinopril (ZESTRIL) 20 MG tablet 20 MG ORALLY EVERY DAY 08/02/2022 Multiple Vitamin (MULTIVITAMIN PO) daily [place]-3 Fatty Acids (FISH OIL PO) Take by mouth daily documented as of this encounter Plan of Treatment Upcoming Encounters Date Type Department Care Team (Latest Contact Info) Description 09/12/2024 12:20 PM VISUAL DESIGNER Hospital Encounter M [address] [place] [address] Mayo Pena MD [address] [place] [phone] 09/12/2024 12:20 PM VISUAL DESIGNER - 09/12/2024 1:25 PM VISUAL DESIGNER Surgery [address] [place] [phone] Mayo Pena MD [address] [place] [address] RIGHT DECOMPRESSION, ORBIT, USING JESSE NAVIGATION AND SONOPET 09/24/2024 9:45 AM VISUAL DESIGNER Office Visit [facility] - [address] [place] [phone] Mayo Pena MD [address] [place] [address] Scheduled Procedures Name Priority Associated Diagnoses Date/Ti me DECOMPRESSION, ORBIT, USING OPTICAL TRACKING SYSTEM Thyroid eye disease 09/12/2024 12:20 PM VISUAL DESIGNER documented as of this encounter Goals Goal [...] ORBITAL W/O CONTRAST Routine 07/11/2024 11:45 AM VISUAL DESIGNER Thyroid eye disease documented in this encounter Results * CT Orbital w/o Contrast (07/11/2024 11:45 AM VISUAL DESIGNER) Anatomical Region Laterality Modality Head, SUBRAD CT NEURO, SUBRA D CT NEURO, UMP CT NEURO, RAD CT Computed Tomography Impressions 07/11/2024 2:40 PM VISUAL DESIGNER Impression: 1. Thickening of the extraocular muscles on the right with relative sparing of the superior rectus. Mild proptosis on the right. No significant change compared to 10/21/2022. 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 2. Normal left orbit. INO MAIER MD SYSTEM ID: [id number] Narrative 07/11/2024 2:[address] ORBITAL W/O CONTRAST 07/11/2024 11:45 AM [...] left orbit. INO MAIER MD SYSTEM ID: [id number] Raymond Singh MD IMG CT ORDERABLES Final Result documented in this encounter Visit [...] as of this encounter Care Teams Director Independent Relationship Specialty Start Date End Date Isael Lockhart MD [facility] [address] [place] [address] PCP - General Family Medicine 12/28/23 Raymond Singh MD [address] [address] Assigned Surgical Provider 03/19/23 documented as of this encounter
[2024-07-23 12:46] LABS: Free T4 Free Thyroxine* 1.35 ng/dL (0.70-1.85)
[2024-07-25 02:29] LABS: Free T3 3.5 pg/mL (2.5-4.3)
== END 2024-07-23 10:55 | disposition home or self-care (01) ==
LOC: NPINS 10:54
PROVIDERS: PCP Family Medicine; Visit Provider Internal Medicine Endocrinology, Diabetes & Metabolism
DX: E05.00 Thyrotoxicosis with diffuse goiter without thyrotoxic crisis or storm (principal)
CPT/HCPCS: 84439; 84443; 84481

== ENCOUNTER 2024-09-03 13:45 | Outpatient (CLI) | payer OTHER, SELFPAY | END 2024-09-03 13:46 | disposition home or self-care (01) | LOC: NFLDREF 13:46 | PROVIDERS: PCP Family Medicine; Visit Provider Family Medicine | DX: Z01.818 Encounter for other preprocedural examination (principal) | CPT/HCPCS: 80048 ==

== ENCOUNTER 2024-11-01 09:27 | Outpatient (CLI) | payer OTHER, SELFPAY ==
[2024-10-31 10:31] LABS: Free T4 Free Thyroxine* 1.07 ng/dL (0.70-1.85)
[2024-11-09 09:08] LABS: Alkaline Phosphatase* 80 U/L (40-150)
== END 2024-11-01 09:28 | disposition home or self-care (01) ==
LOC: NPINS 09:29
PROVIDERS: PCP Family Medicine; Visit Provider Internal Medicine Endocrinology, Diabetes & Metabolism
DX: E05.00 Thyrotoxicosis with diffuse goiter without thyrotoxic crisis or storm (principal)
CPT/HCPCS: 84075; 84439; 84443; 84481

== ENCOUNTER 2025-02-18 08:39 | Outpatient (CLI) | payer OTHER, SELFPAY ==
[2025-02-18 10:44] LABS: Albumin* 4.5 g/dL (3.3-5.0); Chloride* 105 mmol/L (96-114); Potassium* 4.3 mmol/L (3.6-5.1); Sodium* 139 mmol/L (135-149)
[2025-02-18 10:47] LABS: Alanine Aminotransferase* 22 U/L (4-50); Alkaline Phosphatase* 80 U/L (40-150); Anion Gap 10 mEq/L (7-15); Aspartate Amino Transferase* 34 U/L (12-35); Bilirubin Total* 0.6 mg/dL (0.1-1.5); Blood Urea Nitrogen* 12 mg/dL (7-30); Calcium* 9.4 mg/dL (8.4-10.6); Carbon Dioxide* 24 mmol/L (20-32); Creatinine* 1.0 mg/dL (0.5-1.5); Estimated Glomerular Filt Rate 89 ml/min; Glucose* 152 mg/dL (60-115); Total Protein* 7.1 g/dL (6.0-8.3)
[2025-02-18 11:02] LABS: Free T4 Free Thyroxine* 1.03 ng/dL (0.70-1.85)
[2025-02-19 09:47] LABS: Free T3 3.7 pg/mL (2.5-4.3)
== END 2025-02-18 08:40 | disposition home or self-care (01) ==
LOC: NPINS 08:40
PROVIDERS: PCP Family Medicine; Visit Provider Internal Medicine Endocrinology, Diabetes & Metabolism
DX: E05.00 Thyrotoxicosis with diffuse goiter without thyrotoxic crisis or storm (principal)
CPT/HCPCS: 80053; 84439; 84443; 84481

== ENCOUNTER 2025-07-08 08:29 | Outpatient (CLI) | payer OTHER, SELFPAY ==
[2025-07-08 10:34] LABS: Alkaline Phosphatase* 111 U/L (40-150)
[2025-07-08 10:58] LABS: Free T4 Free Thyroxine* 1.16 ng/dL (0.70-1.85)
[2025-07-09 20:50] LABS: Free T3 4.2 pg/mL (2.5-4.3)
== END 2025-07-08 08:30 | disposition home or self-care (01) ==
LOC: NPINS 08:29
PROVIDERS: PCP Family Medicine; Visit Provider Internal Medicine Endocrinology, Diabetes & Metabolism
DX: E05.00 Thyrotoxicosis with diffuse goiter without thyrotoxic crisis or storm (principal); E05.90 Thyrotoxicosis, unspecified without thyrotoxic crisis or storm
CPT/HCPCS: 84075; 84439; 84443; 84481

== ENCOUNTER 2025-07-08 08:44 | Outpatient (CLI) | payer OTHER, SELFPAY | END 2025-07-08 08:45 | disposition home or self-care (01) | LOC: NFLDREF 07-13 17:07 | PROVIDERS: PCP Family Medicine; Referring Provider Family Medicine; Visit Provider Internal Medicine Endocrinology, Diabetes & Metabolism | DX: E05.00 Thyrotoxicosis with diffuse goiter without thyrotoxic crisis or storm (principal) | CPT/HCPCS: 80053; 80061; 82043; 82570; G0103 ==